=== PATIENT | male | born 1930 | race Caucasian/White ===

== ENCOUNTER → 2016-07-22 | Outpatient (CLI) | payer MEDICARE, BC ==
[~2016-07-22] MED LIST: ACETAM OR; ACETAMINOPHEN PO; AMBI12.52 PO; ATEN50TA2 PO; ATOR40TA PO; CALC500T36 PO; CIPR500S PO; CIPR500T89 PO; DIGO0.127 PO; DIGO0.25 PO; DUTA1CAP PO; FISH500C PO; FLOM5CAP OR; FURO20TA2 PO; GLIP5TAB8 PO; LIPI20TA PO; LISI-542 PO; MAGN250T5 PO; METF-699 PO; METF1000 PO; MULT1TAB8 PO; NITR100C37 PO; NITR4TASL SL; PERCOCET PO; PLAV75TA38 PO; PROS5TAB PO; SAW1CAP2 PO; SKEL-29 PO; TRAM37.53 PO; TRAMADOL OR; TRAMADOL PO; TRAZ50TA4 OR; TYLE167L PO; TYLE500T78 PO; TYLE650T25 PO; ULTR37.52 PO; VITA10002 PO; VITA50003 PO; XARE20TA PO; calcium + D OR; coumadin OR; fish oil OR; glipizide OR; nitroglycerine SL; prilosec OR
--- NOTE | 2016-07-25 06:22 | SLEEPCENT ---
DATE OF PROCEDURE: 07/22/2016 ORDERED BY: Sharri Li NP Nocturnal polysomnography was performed for evaluation of sleep apnea syndrome symptoms in this patient with a history of excessive somnolence, nonrestorative sleep, comorbidities of ischemic heart disease, atrial fibrillation and type 2 diabetes. 8 hours and 13 minutes of data were reviewed. There were 276 minutes of sleep identified. Sleep latency was prolonged at 94 minutes. Rapid eye movement (REM) was prolonged at 142 minutes. Sleep architecture showed severe fragmentation with 1 REM period. Sleep efficiency was low at 56%. The patient's electrocardiogram (EKG) showed atrial fibrillation with a ventricular response on average of 66 beats per minute. Electroencephalogram (EEG) showed normal waveforms for awake and sleep. There were 210 respiratory events identified of 10 seconds in duration or greater for an apnea hypopnea index of 45.6. The events were primarily obstructive, not exclusive to sleep stage, more frequent but not exclusive the supine posture. Arousals from respiratory events occurred 21.5 times per hour and oxygen desaturations were seen into the low 80s. Remaining of measures of sleep physiology were reasonably normal with some limb activity, but arousals from limb events were few. IMPRESSION: Severe obstructive sleep apnea syndrome (G47.33). Apnea hypopnea index 45.6. RECOMMENDATION: The patient should be encouraged to return to the sleep disorder center for pressure therapy at the earliest convenience. In the interim, alcohol and sedative avoidance should be practiced and caution exercised during the operation of motor vehicles.
== END ==
LOC: M SLEEP 19:43
PROVIDERS: ATTEND Nurse Practitioner Adult Health
DX: G47.30 Sleep apnea, unspecified (principal)

== ENCOUNTER → 2016-08-06 | Outpatient (CLI) | payer MEDICARE, BC | LOC: M SLEEP 19:41 | PROVIDERS: ATTEND Nurse Practitioner Adult Health | DX: G47.33 Obstructive sleep apnea (adult) (pediatric) (principal) ==

== ENCOUNTER → 2016-08-27 | Outpatient (REF) | payer MEDICARE, BC ==
[2016-08-27 13:34] LABS: MEAN CORPUSCULAR HEMOGLOBIN 27.7 pg (27.0-33.0); MEAN CORPUSCULAR HGB CONC 31.7 g/dl (32.0-36.5); MEAN CORPUSCULAR VOLUME 87.7 fl (80.0-96.0); RED CELL DISTRIBUTION WIDTH 15.4 % (11.5-14.5); WHITE BLOOD COUNT 6.8 K/mm3 (4.0-10.0)
[2016-08-27 13:38] LABS: ALBUMIN 3.6 GM/DL (3.2-5.2); ALBUMIN/GLOBULIN RATIO 1.09 (1.00-1.93); ALKALINE PHOSPHATASE 83 U/L (45-117); ALT/SGPT 27 U/L (12-78); ANION GAP 6 MEQ/L (8-16); AST/SGOT 17 U/L (15-37); BILIRUBIN,TOTAL 0.8 MG/DL (0.2-1.0); BLOOD UREA NITROGEN 20 MG/DL (7-18); CALCIUM LEVEL 9.1 MG/DL (8.8-10.2); CARBON DIOXIDE LEVEL 33 MEQ/L (21-32); CHLORIDE LEVEL 99 MEQ/L (98-107); CREATININE FOR GFR 0.98 MG/DL (0.70-1.30); GLOMERULAR FILTRATION RATE > 60.0 (>35); GLUCOSE, FASTING 191 MG/DL (83-110); MAGNESIUM LEVEL 1.9 MG/DL (1.8-2.4); SODIUM LEVEL 138 MEQ/L (136-145); TOTAL PROTEIN 6.9 GM/DL (6.4-8.2)
== END ==
LOC: M SFHCPLAZ 11:30
PROVIDERS: ATTEND Internal Medicine
DX: N39.0 Urinary tract infection, site not specified (principal); Z51.81 Encounter for therapeutic drug level monitoring; Z79.01 Long term (current) use of anticoagulants; E11.59 Type 2 diabetes mellitus with other circulatory complications; I10 Essential (primary) hypertension
CPT/HCPCS: 80053; 82043; 83036; 83735; 85027; 87086; G0463

== ENCOUNTER 2016-10-28 11:30 | Inpatient (IN) | payer MEDICARE, BC ==
[~2016-10-28] VITALS: Ht 188 cm; Wt 78.9 kg
[2016-10-28] MEDS ORDERED: OMEP10CASR PO (11:58)
[2016-10-28] MEDS ORDERED: MACR100C3 PO (11:58)
[2016-10-28] MEDS ORDERED: TOPR25TA PO (11:58)
[2016-10-28 12:24] LABS: BASO % 0.4 % (0.0-1.0); EOS # 0.2 K/mm3 (0.0-0.50); EOS % 2.7 % (0.0-3.0); LARGE UNSTAINED CELL # 0.1 K/mm3 (0.0-0.4); LARGE UNSTAINED CELL % 1.3 % (0.0-4.0); LYMPH # 1.1 K/mm3 (1.5-4.5); LYMPH % 14.8 % (24.0-44.0); MEAN CORPUSCULAR HEMOGLOBIN 27.9 pg (27.0-33.0); MEAN CORPUSCULAR HGB CONC 31.4 g/dl (32.0-36.5); MEAN CORPUSCULAR VOLUME 88.9 fl (80.0-96.0); MONO # 0.3 K/mm3 (0.0-0.8); NEUTROPHILS # 5.1 K/mm3 (1.8-7.7); NEUTROPHILS % 75.7 % (36.0-66.0); PLATELET COUNT, AUTOMATED 223 k/mm3 (150-450); WHITE BLOOD COUNT 6.8 K/mm3 (4.0-10.0)
--- NOTE | 2016-10-28 12:42 | REP ---
PORTABLE CHEST: AP portable view of the chest is performed. COMPARISON: 01/18/2016 There are diffuse bilateral infiltrates, right greater than left. There is a right pleural effusion. Heart size is not well evaluated but the heart size appears prominent. IMPRESSION: Diffuse bilateral infiltrates right grater than left. Right pleural effusion. Signed by Gilberto Ayala MD 10/30/2016 06:56 P
[2016-10-28 12:50] LABS: ALBUMIN 3.7 GM/DL (3.2-5.2); ALBUMIN/GLOBULIN RATIO 0.97 (1.00-1.93); ALKALINE PHOSPHATASE 84 U/L (45-117); ALT/SGPT 41 U/L (12-78); ANION GAP 7 MEQ/L (8-16); AST/SGOT 27 U/L (15-37); BILIRUBIN,DIRECT 0.3 MG/DL (0.0-0.2); BILIRUBIN,TOTAL 0.9 MG/DL (0.2-1.0); BLOOD UREA NITROGEN 33 MG/DL (7-18); CARBON DIOXIDE LEVEL 29 MEQ/L (21-32); CHLORIDE LEVEL 101 MEQ/L (98-107); CREATININE FOR GFR 1.19 MG/DL (0.70-1.30); GLOMERULAR FILTRATION RATE > 60.0 (>35); GLUCOSE, FASTING 193 MG/DL (83-110); POTASSIUM SERUM 4.7 MEQ/L (3.5-5.1); SODIUM LEVEL 137 MEQ/L (136-145); TOTAL PROTEIN 7.5 GM/DL (6.4-8.2)
[2016-10-28] MEDS ORDERED: FUROSEMIDE 40 MG/4 ML VIAL (J1940) IV ONE (13:15)
[2016-10-28 13:32] LABS: INR 2.05
[2016-10-28] MEDS ORDERED: NITROGLYCERIN 2% OINT 1 GM *U/D* PKT TOP ONE (14:15)
[2016-10-28] MEDS ORDERED: OYST1TAB5 PO (14:44)
[2016-10-28] MEDS ORDERED: DEXTROSE 50% 50 ML SYRINGE IV PRN (17:15)
[2016-10-28] MEDS ORDERED: GLUCOSE 4 GM CHEW TABLET PO PRN (17:15)
[2016-10-28] MEDS ORDERED: GLUCAGON FOR INJ 1 MG VIAL (J1610) SC PRN (17:15)
[2016-10-28 17:20] VITALS: BP 126/84
[2016-10-28] MEDS: HumaLOG INSULIN (NovoLOG) PER UNIT SC SCH ×2 (17:30→21:00)
--- NOTE | 2016-10-28 19:20 | HPEPDOC ---
General Date of Admission October 28, 2016 at 15:07 Primary Care Physician: Ezequiel Leo Other Providers Dr. Lou, furniture mover helper Attending Physician: ROLDAN NAVA Chief Complaint The patient is a 86-year-old male admitted with a reason for visit of Acute On Chronic Systolic Heart Failure. Source: Patient, Family Exam Limitations: Hard of hearing History of Present Illness Patient is an 86-year-old male presenting today with 3-4 days of shortness of breath and fatigue. Patient reports being able to walk over 10 feet before becoming short of breath. He and fact even mowed his lawn on Thursday, although was a riding lawnmower. Past 3-4 days patient is unable to walk 10 feet without becoming short of breath and having to stop. Today the shortness of breath became worse and patient is short of breath at rest. Normally is not on any oxygen supplementation at home. Patient admits to having chest pain with eructation and is relieved with taking a deep breath or burping. Patient denies pleuritic chest pain. Patient also admits to having increased swelling in lower extremities. Usually swelling is more confined to feet but has increased over the last several days. Patient also admits to falling on his face in the early childhood worker of 10/27/2016. This happened when he got up to feed his cat. Patient reports bending over to feel cat bowl with food and fell on his face. Patient remembers the whole event and does not remember passing out. Patient was able to stand up after the events. Patient reports having a small bruise over his left eye and no other injury from this fall. Patient does live next door to her daughter and her however nobody was there to witness this at that time. Patient does have a history of previous PA, atrial fibrillation, systolic heart failure, and type [address] Lou for cardiology done in [place]. Last appointment was in July 2016. Patient reports last PA was roughly a year ago and had 2 stents placed at that time. Home Medications Scheduled (Oyster Shell Calcium/D3 500-400 mg-Unit) 1 Tab Tab, 1 TAB PO DAILY, (Reported) Acetaminophen (Tylenol Extra Strength) 500 Mg Tab, 500 MG PO QHS, (Reported) Atorvastatin Calcium (Atorvastatin Calcium) 40 Mg Tab, 40 MG PO DAILY, (Reported ) Clopidogrel Bisulfate (Plavix) 75 Mg Tab, 75 MG PO QPM, (Reported) Cyanocobalamin (Vitamin B-12) 1,000 Mcg Tab, 5,000 MCG PO DAILY, (Reported) Digoxin (Digox) 0.125 Mg Tab, 0.125 MG PO DAILY, (Reported) Dutasteride (Dutasteride) 0.5 Mg Cap, 0.5 MG PO QPM, (Reported) Ergocalciferol (Vitamin D) 50,000 Unit Cap, 1.25 MG PO Q2WK, (Reported) EVERY OTHER THURSDAY Furosemide (Furosemide) 20 Mg Tab, 60 MG PO DAILY, (Reported) Glipizide (Glipizide) 5 Mg Tab, 5 MG PO QHS, (Reported) Lisinopril (Lisinopril) 5 Mg Tab, 10 MG PO DAILY, (Reported) Magnesium Oxide (Magnesium) 250 Mg Tab, 250 MG PO DAILY, (Reported) Metformin Hydrochloride (Metformin HCl ER) 500 Mg Tab, 1,000 MG PO BID, ( Reported) Metoprolol Succinate (Toprol Xl) 25 Mg Tab, 25 MG PO QPM, (Reported) Nitrofurantoin Monohydrate Mac (Macrobid) 100 Mg Cap, 100 MG PO QPM, (Reported) Omeprazole (PriLOSEC) 10 Mg Capcr, 20 MG PO QPM, (Reported) Rivaroxaban (Xarelto) 20 Mg Tab, 20 MG PO DAILY, (Reported) Tamsulosin Hydrochloride (Flomax) 0.4 Mg Cap, 0.4 MG OR DAILY, (Reported) Tramadol/Apap (Ultracet 37.5-325 mg) 1 Tab Tab, 1 TAB PO DAILY, (Reported) Zolpidem Tartrate (Ambien Cr) 12.5 Mg Tab, 12.5 MG PO QHS, (Reported) Scheduled PRN Nitroglycerin (Nitrostat) 0.4 Mg Subl, 0.4 MG SL ASDIRECTED PRN for CHEST PAIN, (Reported) Allergies Coded Allergies: Sulfa Drugs (Unverified Allergy, Unknown, 08/30/12) Sulfa Drugs Cross Reactors (Unverified Allergy, Unknown, 08/30/12) Past Medical History Medical History 1. history of myocardial infarction 2. History of congestive heart failure 3. Diabetes mellitus type 2 4. 2 cardiac stent placement 2015 5. History of atrial fibrillation 6. History of chronic back and neck pain 7. History of chronic bladder infection 8. History of bladder stones 9. BPH Surgical History 1. Bilateral knee replacement 2. Removal of bladder stones 3. Cataracts bilaterally 4. Lumbar spine disc repair Social History * Smoker: former Smoker (smoked a pack a day for possibly 17 years), quit greater than 1 year (quit 47 years ago.) Alcohol: rarely Drugs: denies Recent Travel/Sick Contacts: Denies: Recent travel, Recent sick contacts Pets in the home: Cat(s) Patient lives at home in house next to her daughter and her . Patient has a cat in the home. Patient he is a former smoker. Denies illegal or illicit drugs. Does not drink any alcohol. Used to drink alcohol on occasion. Review of Symptoms Constitutional: Denies: Chills, Fever Eyes: Denies: Vision change ENT: Denies: Head Aches Skin: Reports: Other (bruise above the left eye.), Denies: Rash, Lesions Pulmonary: Reports: Dyspnea, Denies: Cough, Pleuritic Chest Pain Cardiovascular: Denies: Chest Pain, Palpitations Gastrointestinal: Reports: Diarrhea (had a loose stool last week.), Denies: Nausea, Vomiting, Abdominal Pain Genitourinary: Denies: Dysuria, Frequency Hematologic: Denies: Bleeding Excessively, Pet[place]chia Musculoskeletal: Denies: Neck Pain, Back Pain Neurological: Denies: Weakness, Numbness Psych: Reports: Mood Normal Physical Examination General Exam: Positive: Alert, Cooperative, No Acute Distress Eye Exam: Positive: PERRLA, Conjunctiva & lids normal, EOMI ENT Exam: Positive: Atraumatic, Mucous membr. moist/pink, Pharynx Normal, Tongue Midline, Nares Patent Neck Exam: Positive: Supple, Negative: JVD, thyromegaly Chest Exam: Positive: Diminished Heart Exam: Positive: Irregular Rhythm, Normal S1, Normal S2 Telemetry: Positive: Atrial fibrillation Abdomen Exam: Positive: Normal bowel sounds, Negative: Tenderness, Hepatospenomegaly, Mass Extremity Exam: Positive: Edema (bilateral lower extremity edema pitting to knees) Skin Exam: Positive: Other skin issue (patient does have a erythematous, follicular, moist and exudative. Extends from right groin to underneath right abdominal fold.) Neuro Exam: Positive: Normal Speech, Strength at 5/5 X4 ext, Normal Tone, Sensation Intact, Cranial Nerves 3-12 NL Psych Exam: Positive: Mental status NL, Oriented x 3 Vital Signs Vital Signs Date Time Temp Pulse Resp B/P (MAP) Pulse Ox O2 Delivery O2 Flow Rate FiO2 10/28/16 17:20 98.2 105 16 126/84 (98) 96 Nasal Cannula 2.0 Height (in): 74 Weight (kg): 88.1 BMI (kg): 24.9 Laboratory Data Labs 24H Laboratory Tests 2 10/28/16 11:55: Prothrombin Time 23.2H, Prothromb Time International Ratio 2.05, Activated Partial Thromboplast Time 40.4H, Digoxin Level 1.6 10/28/16 12:02: White Blood Count 6.8, Red Blood Count 4.12L, Hemoglobin 11.5L, Hematocrit 36.6L , Mean Corpuscular Volume 88.9, Mean Corpuscular Hemoglobin 27.9, Mean Corpuscular Hemoglobin Concent 31.4L, Red Cell Distribution Width 15.0H, Platelet Count 223, Neutrophils (%) (Auto) 75.7H, Lymphocytes (%) (Auto) 14.8L, Monocytes (%) (Auto) 5.0, Eosinophils (%) (Auto) 2.7, Basophils (%) (Auto) 0.4, Neutrophils # (Auto) 5.1, Lymphocytes # (Auto) 1.1L, Monocytes # (Auto) 0.3, Eosinophils # (Auto) 0.2, Basophils # (Auto) 0.0, Large Unclassified Cells % 1.3 , Large Unclassified Cells # 0.1, Anion Gap 7L, Glomerular Filtration Rate > 60.0, Calcium Level 9.0, Aspartate Amino Transf (AST/SGOT) 27, Alanine Aminotransferase (ALT/SGPT) 41, Alkaline Phosphatase 84, Total Bilirubin 0.9, Direct Bilirubin 0.3H, Total Creatine Kinase 222, Creatine Kinase MB 1.9, Creatine Kinase MB Relative Index 0.85, Troponin I 0.03, B-Type Natriuretic Peptide 923H, Total Protein 7.5, Albumin 3.7, Albumin/Globulin Ratio 0.97L, Thyroid Stimulating Hormone (TSH) 3.530 10/28/16 17:44: Bedside Glucose (Misc Panel) 163H 10/28/16 17:57: CBC/BMP Laboratory Tests 10/28/16 12:02 Red Blood Count 4.12 L, Mean Corpuscular Volume 88.9, Mean Corpuscular Hemoglobin 27.9, Mean Corpuscular Hemoglobin Concent 31.4 L, Red Cell Distribution Width 15.0 H, Neutrophils (%) (Auto) 75.7 H, Lymphocytes (%) (Auto ) 14.8 L, Monocytes (%) (Auto) 5.0, Eosinophils (%) (Auto) 2.7, Basophils (%) ( Auto) 0.4, Neutrophils # (Auto) 5.1, Lymphocytes # (Auto) 1.1 L, Monocytes # ( Auto) 0.3, Eosinophils # (Auto) 0.2, Basophils # (Auto) 0.0 Microbiology Microbiology 10/28/16 Blood Culture, Received Pending 10/28/16 Blood Culture, Received Pending RAD Interpretation STUDY: CXR (diffuse infiltrates and right pleural effusion) Problems (1) Acute on chronic systolic (congestive) heart failure Problem Text: Patient has a documented echo from August 2015 showing an ejection fracture of 40%. Patient's furniture mover helper is Dr. Lou in [place]. Patient has signs of worsening heart failure that include worsening dyspnea, dyspnea at rest, lower extremity edema, and fatigue. Patient's BMP today is 923. Chest x-ray showed diffuse infiltrates with a right pleural effusion. EKG in the ER revealed atrial fibrillation as per patient's history. Patient was on 2 L oxygen the ER but still complaining of dyspnea. Patient is on oral Lasix at home 60 mg a day. Changing patient's Lasix to IV 60 mg a day. Patient's last recorded echo was from August 2015. Since patient's status has changed today ordering an echo while patient is in the hospital. Moderate patient's nose and weight daily. Patient will be on a monitor. Continue patient' s home LARISA inhibitor and beta ran. We'll also continue patient's digoxin. Patient is on antiplatelet therapy with Plavix 75 mg daily. Continue this while in the hospital. Continue patient's LARISA inhibitor, lisinopril 10 mg daily. Also continuing patient's statin Lipitor 40 mg daily. Patient's initial cardiac markers were negative in the ER. Repeat cardiac markers at 6 PM and midnight tonight. Also repeating patient's EKG at 6 PM this evening. This is to rule out's cardiac ischemia changes. (2) Chronic atrial fibrillation Problem Text: Patient has history of chronic atrial fibrillation which she seen cardiologists in the past for. Patient is on regular control as well as anticoagulation. He takes metoprolol 25 mg daily and Xarelto 20 mg daily at home. We'll continue this while patient is in the hospital. Patient is on a senior producer. (3) Diabetes type 2, controlled Problem Text: Holding patient's home medications of metformin and glipizide. Started patient on sliding scale insulin while in the hospital. Monitor patient' s glucose and signs of hypoglycemia. (4) BPH (benign prostatic hyperplasia) Problem Text: Patient reports having benign prostatic hypertrophy and takes Avodart and Flomax daily. Patient reports this helps. We'll continue this while patient is in the hospital. (5) Bladder infection, chronic Problem Text: Patient reports having a chronic bladder infection and takes Macrobid daily for this. Patient is taking this for several months her primary care physician. We'll continue this while in the hospital. (6) Tinea cruris Problem Text: Patient was aware of this fungal infection from his right groin to underneath his right abdominal fold. Patient denies any symptoms of pruritus , pain. This was found incidentally on physical exam. Patient did have this in the past and used an antifungal. Prescribing patient nystatin cream to be applied twice a day while in the hospital. (7) YOEL (obstructive sleep apnea) Problem Text: Patient has history of obstructive sleep apnea and wears CPAP at home. (8) Chronic back pain Problem Text: Patient has chronic back pain. Continuing patient's home medication of Ultracet 37.5-325 mg 1 tablet daily, acetaminophen 1 tablet daily 500 mg. Plan / VTE VTE Prophylaxis Ordered?: Yes (patient is on Xarelto 20 mg daily for atrial fibrillation.) GME ATTESTATION GME ATTESTATION My preceptor for this patient encounter was Dr. Baltazar and she was physically present in the building during the encounter and was fully available. As needed , all aspects of the patient interview, examination, medical decision making process, and medical care plan development were reviewed and approved by the preceptor. Preceptor is aware and concurs with the plan as stated in the body of this note and will attest to such by his/her co-signature. LAURA HEREDIA DO October 28, 2016 18:18
[2016-10-28 19:53] VITALS: BP 112/73
--- NOTE | 2016-10-28 20:42 | ECGEPIP ---
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
[2016-10-28] MEDS: NYSTATIN CREAM 15 GM TOP SCH (21:10)
[2016-10-28] MEDS: METOPROLOL SUCC *XL* 25MG TAB (TopROL *XL*) PO SCH (21:11)
[2016-10-28] MEDS: DUTASTERIDE 0.5 MG CAP (AVODART) PO SCH (21:11)
[2016-10-28] MEDS: RIVAROXABAN 20 MG TAB (XARELTO) PO SCH (21:11)
[2016-10-28] MEDS: NITROFURANTOIN (MACROBID) 100 MG CAP PO SCH (21:11)
[2016-10-28] MEDS: CLOPIDOGREL 75 MG TAB PO SCH (21:11)
[2016-10-28] MEDS: zolPIDEM CR 6.25MG TABLET (AMBIEN CR) PO SCH (21:11)
[2016-10-28] MEDS: FUROSEMIDE 100 MG/10 ML VIAL (J1940) IV SCH (21:12)
--- NOTE | 2016-10-28 22:43 | ECGEPIP ---
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
[2016-10-28 23:43] VITALS: BP 121/75
[2016-10-29 04:42] VITALS: BP 108/62
[2016-10-29 05:36] LABS: BASO % 0.4 % (0.0-1.0); EOS # 0.2 K/mm3 (0.0-0.50); EOS % 3.5 % (0.0-3.0); LARGE UNSTAINED CELL # 0.1 K/mm3 (0.0-0.4); LARGE UNSTAINED CELL % 1.2 % (0.0-4.0); LYMPH # 0.9 K/mm3 (1.5-4.5); LYMPH % 16.7 % (24.0-44.0); MEAN CORPUSCULAR HEMOGLOBIN 28.2 pg (27.0-33.0); MEAN CORPUSCULAR HGB CONC 32.1 g/dl (32.0-36.5); MONO # 0.3 K/mm3 (0.0-0.8); MONO % 5.3 % (0.0-5.0); NEUTROPHILS # 3.9 K/mm3 (1.8-7.7); NEUTROPHILS % 72.9 % (36.0-66.0); PLATELET COUNT, AUTOMATED 187 k/mm3 (150-450); WHITE BLOOD COUNT 5.3 K/mm3 (4.0-10.0)
[2016-10-29 05:53] LABS: ANION GAP 7 MEQ/L (8-16); BLOOD UREA NITROGEN 34 MG/DL (7-18); CALCIUM LEVEL 8.7 MG/DL (8.8-10.2); CARBON DIOXIDE LEVEL 32 MEQ/L (21-32); CHLORIDE LEVEL 100 MEQ/L (98-107); CREATININE FOR GFR 1.05 MG/DL (0.70-1.30); GLOMERULAR FILTRATION RATE > 60.0 (>35); GLUCOSE, FASTING 143 MG/DL (83-110); MAGNESIUM LEVEL 1.7 MG/DL (1.8-2.4); POTASSIUM SERUM 4.3 MEQ/L (3.5-5.1); SODIUM LEVEL 139 MEQ/L (136-145)
[2016-10-29 08:00] VITALS: BP 104/64
[2016-10-29] MEDS ORDERED: MAG SULF 1GM/100ML (MAG RUN) 1 GM in APPROPRIATE DILUENT 1 EA IV ONE (08:00)
[2016-10-29] MEDS ORDERED: LISINOPRIL 10 MG TAB PO SCH (09:00)
[2016-10-29] MEDS ORDERED: FUROSEMIDE 100 MG/10 ML VIAL (J1940) IV SCH (09:00)
[2016-10-29] MEDS: HumaLOG INSULIN (NovoLOG) PER UNIT SC SCH ×4 (09:08→20:12)
[2016-10-29] MEDS: FUROSEMIDE 100 MG/10 ML VIAL (J1940) IV SCH ×2 (09:10→20:13)
[2016-10-29] MEDS: DIGOXIN 0.125 MG TAB PO SCH (09:10)
[2016-10-29] MEDS: ATORVASTATIN 20 MG TAB PO SCH (09:10)
[2016-10-29] MEDS: LISINOPRIL 5 MG TAB PO SCH (09:11)
[2016-10-29] MEDS: NYSTATIN CREAM 15 GM TOP SCH ×2 (09:11→20:14)
[2016-10-29] MEDS: TAMSULOSIN 0.4 MG CAP PO SCH (09:11)
[2016-10-29] MEDS: ULTRACET TAB PO SCH (09:14)
--- NOTE | 2016-10-29 09:23 | REP ---
CT of the chest without IV contrast: Comparison is the portable plain film study dated 10/28/2016. There is a large right pleural effusion. There is a small left pleural effusion. There is an infiltrate versus mass posteriorly in the right middle lobe. There is no mediastinal or axillary adenopathy. The study is insensitive for hilar adenopathy. The thoracic aorta is unremarkable. Cardiac size is normal. The visualized upper abdominal contents are unremarkable. Signed by Gilberto Bond MD 10/29/2016 09:15 A
[2016-10-29 11:53] VITALS: BP 115/64
--- NOTE | 2016-10-29 15:27 | IPNPDOC ---
Text Note Date of Service The patient was seen on 10/29/16. NOTE Subjective: Pt feeling better. SOB improving. No CP. Objective: Vitals: (see below) General: No acute distress, laying comfortably in bed. HEENT: Moist mucous membranes. Neck: No JVD or lymphadenopathy Cardiac: RRR, No murmurs Pulm: Coarse crackles and diminished breath sounds R>L. No wheezing, rhonchi Abd: NT/ND + BS Ext: 2+ pitting edema BLE. No cyanosis Labs (see below) Images: CT of the chest without IV contrast: Comparison is the portable plain film study dated 10/28/2016. There is a large right pleural effusion. There is a small left pleural effusion. There is an infiltrate versus mass posteriorly in the right middle lobe. There is no mediastinal or axillary adenopathy. The study is insensitive for hilar adenopathy. The thoracic aorta is unremarkable. Cardiac size is normal. The visualized upper abdominal contents are unremarkable. Assessment/Plan 1.Acute Decompensated systolic heart failure- last EF 40% in August 2015. On IV Lasix diuresing well. Continued on LARISA inhibitor and beta ran, which patient takes at home. Repeat echocardiogram. EKG with no acute ST changes. Cardiac enzymes negative. 2. Large right pleural effusion- we'll continue with aggressive diuresis, and repeat CT chest with contrast. May need thoracentesis if persistent. History of tobacco abuse. 3. History of atrial fibrillation on Xarelto. Continue metoprolol. 4. History of CAD on Plavix, statin, and beta ran 5. YOEL on CPAP 6. BPH on Flomax 7. Chronic recurrent UTI- on nitrofurantoin DVT prophy: On Xarelto VS,Fishbone, I+O VS, Fishbone, I+O Laboratory Tests 10/29/16 05:01 Red Blood Count 3.73 L, Mean Corpuscular Volume 88.0, Mean Corpuscular Hemoglobin 28.2, Mean Corpuscular Hemoglobin Concent 32.1, Red Cell Distribution Width 15.0 H, Neutrophils (%) (Auto) 72.9 H, Lymphocytes (%) (Auto ) 16.7 L, Monocytes (%) (Auto) 5.3 H, Eosinophils (%) (Auto) 3.5 H, Basophils (% ) (Auto) 0.4, Neutrophils # (Auto) 3.9, Lymphocytes # (Auto) 0.9 L, Monocytes # (Auto) 0.3, Eosinophils # (Auto) 0.2, Basophils # (Auto) 0.0, Calcium Level 8.7 L Vital Signs Date Time Temp Pulse Resp B/P (MAP) Pulse Ox O2 Delivery O2 Flow Rate FiO2 10/29/16 13:00 Nasal Cannula 2.0 10/29/16 11:53 97.5 63 20 115/64 (04) 98 I&O- Last 24 Hours up to 6 AM 10/29/16 06:00 Intake Total 480 ml Output Total 2100 ml Balance -1620 ml STEPHAN STAPLES MD October 29, 2016 15:27
[2016-10-29 16:00] VITALS: BP 104/64
[2016-10-29] MEDS: RIVAROXABAN 20 MG TAB (XARELTO) PO SCH (17:54)
[2016-10-29 20:00] VITALS: BP 117/64
[2016-10-29] MEDS: zolPIDEM CR 6.25MG TABLET (AMBIEN CR) PO SCH (20:13)
[2016-10-29] MEDS: CLOPIDOGREL 75 MG TAB PO SCH (20:14)
[2016-10-29] MEDS: METOPROLOL SUCC *XL* 25MG TAB (TopROL *XL*) PO SCH (20:14)
[2016-10-29] MEDS: NITROFURANTOIN (MACROBID) 100 MG CAP PO SCH (20:14)
[2016-10-29] MEDS: DUTASTERIDE 0.5 MG CAP (AVODART) PO SCH (20:14)
[2016-10-29] MEDS ORDERED: SLF 3 ML SYR IV PRN (23:00)
[2016-10-30] VITALS (7 sets, daily range): BP systolic 86–110; BP diastolic 48–74
[2016-10-30] MEDS: SLF 3 ML SYR IV SCH ×3 (03:40→20:48)
[2016-10-30 05:43] LABS: BASO % 0.5 % (0.0-1.0); EOS # 0.2 K/mm3 (0.0-0.50); LARGE UNSTAINED CELL # 0.1 K/mm3 (0.0-0.4); LARGE UNSTAINED CELL % 1.8 % (0.0-4.0); LYMPH # 0.9 K/mm3 (1.5-4.5); LYMPH % 16.4 % (24.0-44.0); MEAN CORPUSCULAR HEMOGLOBIN 28.6 pg (27.0-33.0); MEAN CORPUSCULAR HGB CONC 32.4 g/dl (32.0-36.5); MEAN CORPUSCULAR VOLUME 88.2 fl (80.0-96.0); MONO # 0.4 K/mm3 (0.0-0.8); MONO % 7.2 % (0.0-5.0); NEUTROPHILS # 3.8 K/mm3 (1.8-7.7); NEUTROPHILS % 71.1 % (36.0-66.0); PLATELET COUNT, AUTOMATED 201 k/mm3 (150-450); WHITE BLOOD COUNT 5.3 K/mm3 (4.0-10.0)
[2016-10-30 05:55] LABS: ANION GAP 5 MEQ/L (8-16); BLOOD UREA NITROGEN 28 MG/DL (7-18); CALCIUM LEVEL 8.6 MG/DL (8.8-10.2); CARBON DIOXIDE LEVEL 35 MEQ/L (21-32); CHLORIDE LEVEL 99 MEQ/L (98-107); CREATININE FOR GFR 0.94 MG/DL (0.70-1.30); GLOMERULAR FILTRATION RATE > 60.0 (>35); GLUCOSE, FASTING 135 MG/DL (83-110); MAGNESIUM LEVEL 1.6 MG/DL (1.8-2.4); POTASSIUM SERUM 3.8 MEQ/L (3.5-5.1); SODIUM LEVEL 139 MEQ/L (136-145)
--- NOTE | 2016-10-30 07:33 | ECHO ---
DATE OF PROCEDURE: 10/29/2016 REFERRING PHYSICIAN: Dr. Matt Ibarra INDICATION: Heart failure unspecified. HEIGHT: 183 cm. WEIGHT: 88 kg. 2D MEASUREMENTS: Aortic root - 3.6 cm Left atrium - 4.1 cm Ventricular septum - 1.07 cm Posterior wall - 1.10 cm Left ventricle diastole - 5.4 cm Inferior vena cava - 2.2 cm DOPPLER MEASUREMENTS: Moderate aortic stenosis. Mild aortic regurgitation. Aortic stenosis dimension index - 0.26 Peak aortic valve gradient - 23 mmHg Mean aortic valve gradient - 12 mmHg Peak aortic valve velocity - 240 cm/s Aortic valve VTI - 45.1 cm LVOT velocity - 55.6 cm/s LVOT VTI - 11.9 cm Severe mitral regurgitation. No mitral stenosis. Very mild tricuspid regurgitation. Trace pulmonic regurgitation. Pulmonary venous systolic pressure 43 mmHg by pulmonary acceleration time method. DESCRIPTION: The rhythm appeared to be atrial fibrillation with controlled ventricular response. Image quality was fair. No pericardial effusion. This is a 2D, M-mode, color flow Doppler and pulsed wave Doppler examination including mitral annular tissue Doppler. CONCLUSIONS: 1. Multiple regional wall motion abnormalities of the left ventricle. Akinesis of the left ventricle apex. Akinesis of the anterior, anteroseptal and inferoseptal segments at the mid left ventricle level. Hypokinesis of the mid inferior wall segment. Hypokinesis of the basal, anteroseptal and basal inferoseptal LV segments. Normal wall motion and wall thickening involving the basal anterior, basal inferior, and the basilar mid inferolateral and anterolateral LV segments. Akinesis of the apical cap segment. No LV thrombus. Severe reduction overall LV systolic function. LVEF 20% by visual estimate. Unable to assess LV diastolic function in the setting of atrial fibrillation and severe mitral regurgitation. 2. Severe mitral annular calcification. Severe mitral regurgitation. No mitral stenosis. 3. Degenerative, mild calcific aortic valve disease with severe focal thickening and focal cuspid deposits of a three-cuspid aortic valve. Moderate reduction in mobility of the aortic cusps. Moderate aortic stenosis as judged by the dimensions index. Mild aortic regurgitation. 4. Moderate left atrial dilatation by visual assessment. 5. Suggestive of moderate elevation of pulmonary artery systolic pressure. Normal right ventricle size and systolic function. Moderate right atrial dilatation by visual assessment. 6. Inferior vena cava plethora. Suggestive of elevated central venous pressure of at least 20 mmHg. 7. The appearance of bilateral pleural effusion.
[2016-10-30] MEDS: FUROSEMIDE 100 MG/10 ML VIAL (J1940) IV SCH (08:23)
[2016-10-30] MEDS: NYSTATIN CREAM 15 GM TOP SCH ×2 (08:24→20:48)
[2016-10-30] MEDS: ATORVASTATIN 20 MG TAB PO SCH (08:25)
[2016-10-30] MEDS: DIGOXIN 0.125 MG TAB PO SCH (08:25)
[2016-10-30] MEDS: LISINOPRIL 5 MG TAB PO SCH (08:26)
[2016-10-30] MEDS: HumaLOG INSULIN (NovoLOG) PER UNIT SC SCH ×4 (08:26→20:47)
[2016-10-30] MEDS: TAMSULOSIN 0.4 MG CAP PO SCH (08:27)
[2016-10-30] MEDS: ULTRACET TAB PO SCH (08:27)
[2016-10-30] MEDS ORDERED: ISOVUE-370 76% 100ML VIAL (Q9967) As Ordered ONE (09:08)
[2016-10-30] MEDS: MAG SULF 1GM/100ML (MAG RUN) 1 GM in APPROPRIATE DILUENT 1 EA IV SCH ×2 (09:49→11:04)
[2016-10-30] MEDS: MAGNESIUM OXIDE 400 MG TAB (MAG-OX) PO SCH ×2 (09:50→20:47)
--- NOTE | 2016-10-30 10:18 | REP ---
REASON: Followup pleural effusion. COMPARISON: 10/29/2016 Contrast utilized: 100 mL of Isovue 370 There is a large right pleural effusion status quo. There is a small left pleural effusion status quo. There is no pericardial effusion. Patchy and asymmetric opacities again seen in the right lower lobe status quo. There is fluid in the right minor fissure, status quo. The imaged upper abdomen and imaged osseous structures are unchanged. Evaluation of the lung moyer show them to be stable. The right lower lobe opacity is likely secondary to compressive atelectatic changes due to the effusion. No new masses are present. IMPRESSION: Essentially unchanged CT examination of the chest with findings as described above. Signed by King Coles DO 10/30/2016 10:42 A
--- NOTE | 2016-10-30 14:07 | IPNPDOC ---
Text Note Date of Service The patient was seen on 10/30/16. NOTE Subjective: Pt feeling better. SOB improving. No CP. Objective: Vitals: (see below) General: No acute distress, laying comfortably in bed. HEENT: Moist mucous membranes. Neck: No JVD or lymphadenopathy Cardiac: RRR, No murmurs Pulm: Coarse crackles and diminished breath sounds R>L. No wheezing, rhonchi Abd: NT/ND + BS Ext: 2+ pitting edema BLE. No cyanosis Labs (see below) Images: CT of the chest without IV contrast: is the portable plain film study dated 10/28/2016. There is a large right pleural effusion. There is a small left pleural effusion. There is an infiltrate versus mass posteriorly in the right middle lobe. There is no mediastinal or axillary adenopathy. The study is insensitive for hilar adenopathy. The thoracic aorta is unremarkable. Cardiac size is normal. The visualized upper abdominal contents are unremarkable. CT Chest with contrast 10/30/16 There is a large right pleural effusion status quo. There is a small left pleural effusion status quo. There is no pericardial effusion. Patchy and asymmetric opacities again seen in the right lower lobe status quo. There is fluid in the right minor fissure, status quo. The imaged upper abdomen and imaged osseous structures are unchanged. Evaluation of the lung moyer show them to be stable. The right lower lobe opacity is likely secondary to compressive atelectatic changes due to the effusion. No new masses are present. IMPRESSION: Essentially unchanged CT examination of the chest with findings as described above. Echocardiogram 10/30/16 CONCLUSIONS: 1. Multiple regional wall motion abnormalities of the left ventricle. Akinesis of the left ventricle apex. Akinesis of the anterior, anteroseptal and inferoseptal segments at the mid left ventricle level. Hypokinesis of the mid inferior wall segment. Hypokinesis of the basal, anteroseptal and basal inferoseptal LV segments. Normal wall motion and wall thickening involving the basal anterior, basal inferior, and the basilar mid inferolateral and anterolateral LV segments. Akinesis of the apical cap segment. No LV thrombus. Severe reduction overall LV systolic function. LVEF 20% by visual estimate. Unable to assess LV diastolic function in the setting of atrial fibrillation and severe mitral regurgitation. 2. Severe mitral annular calcification. Severe mitral regurgitation. No mitral stenosis. 3. Degenerative, mild calcific aortic valve disease with severe focal thickening and focal cuspid deposits of a three-cuspid aortic valve. Moderate reduction in mobility of the aortic cusps. Moderate aortic stenosis as judged by the dimensions index. Mild aortic regurgitation. 4. Moderate left atrial dilatation by visual assessment. 5. Suggestive of moderate elevation of pulmonary artery systolic pressure. Normal right ventricle size and systolic function. Moderate right atrial dilatation by visual assessment. 6. Inferior vena cava plethora. Suggestive of elevated central venous pressure of at least 20 mmHg. 7. The appearance of bilateral pleural effusion. Assessment/Plan 1.Acute Decompensated systolic heart failure- last EF 40% in August 2015--> now 20%. Severe MR noted. Dr. Lincoln consulted. On IV Lasix diuresing well. Continued on LARISA inhibitor and beta ran. Repeat echocardiogram (see above). EKG with no acute ST changes. Cardiac enzymes negative. 2. Large right pleural effusion- we'll continue with aggressive diuresis, New since 12/2015. Repeat CT chest with contrast. May need thoracentesis if persistent. History of tobacco abuse. Consolidation noted, started on Levaquin. 3. History of atrial fibrillation on Xarelto. Continue metoprolol. 4. History of CAD on Plavix, statin, and beta ran 5. YOEL on CPAP 6. BPH on Flomax 7. Chronic recurrent UTI- on nitrofurantoin DVT prophy: On Xarelto VS,Fishbone, I+O VS, Fishbone, I+O Laboratory Tests 10/30/16 05:13 Red Blood Count 3.84 L, Mean Corpuscular Volume 88.2, Mean Corpuscular Hemoglobin 28.6, Mean Corpuscular Hemoglobin Concent 32.4, Red Cell Distribution Width 15.0 H, Neutrophils (%) (Auto) 71.1 H, Lymphocytes (%) (Auto ) 16.4 L, Monocytes (%) (Auto) 7.2 H, Eosinophils (%) (Auto) 3.0, Basophils (%) (Auto) 0.5, Neutrophils # (Auto) 3.8, Lymphocytes # (Auto) 0.9 L, Monocytes # ( Auto) 0.4, Eosinophils # (Auto) 0.2, Basophils # (Auto) 0.0, Calcium Level 8.6 L Vital Signs Date Time Temp Pulse Resp B/P (MAP) Pulse Ox O2 Delivery O2 Flow Rate FiO2 10/30/16 11:31 97.0 95 18 98/48 (65) 95 Nasal Cannula 2.0 I&O- Last 24 Hours up to 6 AM 10/30/16 05:59 Intake Total 1480 ml Output Total 2750 ml Balance -1270 ml STEPHAN STAPLES MD Oct 30, 2016 14:07
[2016-10-30] MEDS ORDERED: LevoFLOXacin IV 500 MG in APPROPRIATE DILUENT 1 EA IV SCH (15:00)
[2016-10-30] MEDS: FUROSEMIDE 40 MG/4 ML VIAL (J1940) IV SCH (17:00)
[2016-10-30] MEDS: RIVAROXABAN 20 MG TAB (XARELTO) PO SCH (18:05)
[2016-10-30] MEDS: zolPIDEM CR 6.25MG TABLET (AMBIEN CR) PO SCH (20:46)
[2016-10-30] MEDS: CLOPIDOGREL 75 MG TAB PO SCH (20:46)
[2016-10-30] MEDS: DUTASTERIDE 0.5 MG CAP (AVODART) PO SCH (20:46)
[2016-10-30] MEDS: NITROFURANTOIN (MACROBID) 100 MG CAP PO SCH (20:46)
[2016-10-30] MEDS: METOPROLOL SUCC *XL* 25MG TAB (TopROL *XL*) PO SCH (20:47)
[2016-10-31] VITALS (7 sets, daily range): BP systolic 89–130; BP diastolic 54–78
[2016-10-31] MEDS: SLF 3 ML SYR IV SCH ×3 (05:42→21:22)
[2016-10-31 05:52] LABS: BASO % 0.4 % (0.0-1.0); EOS # 0.2 K/mm3 (0.0-0.50); LARGE UNSTAINED CELL # 0.1 K/mm3 (0.0-0.4); LARGE UNSTAINED CELL % 1.6 % (0.0-4.0); LYMPH # 1.1 K/mm3 (1.5-4.5); LYMPH % 18.7 % (24.0-44.0); MEAN CORPUSCULAR VOLUME 87.3 fl (80.0-96.0); MONO # 0.4 K/mm3 (0.0-0.8); MONO % 7.2 % (0.0-5.0); NEUTROPHILS # 3.8 K/mm3 (1.8-7.7); NEUTROPHILS % 68.1 % (36.0-66.0); PLATELET COUNT, AUTOMATED 196 k/mm3 (150-450); WHITE BLOOD COUNT 5.5 K/mm3 (4.0-10.0)
[2016-10-31 06:06] LABS: ANION GAP 5 MEQ/L (8-16); BLOOD UREA NITROGEN 30 MG/DL (7-18); CALCIUM LEVEL 8.5 MG/DL (8.8-10.2); CARBON DIOXIDE LEVEL 35 MEQ/L (21-32); CHLORIDE LEVEL 97 MEQ/L (98-107); CREATININE FOR GFR 1.06 MG/DL (0.70-1.30); GLOMERULAR FILTRATION RATE > 60.0 (>35); GLUCOSE, FASTING 199 MG/DL (83-110); SODIUM LEVEL 137 MEQ/L (136-145)
[2016-10-31] MEDS: MAGNESIUM OXIDE 400 MG TAB (MAG-OX) PO SCH ×2 (08:34→21:20)
[2016-10-31] MEDS: ATORVASTATIN 20 MG TAB PO SCH (08:34)
[2016-10-31] MEDS: TAMSULOSIN 0.4 MG CAP PO SCH (08:34)
[2016-10-31] MEDS: DIGOXIN 0.125 MG TAB PO SCH (08:37)
[2016-10-31] MEDS: HumaLOG INSULIN (NovoLOG) PER UNIT SC SCH ×4 (08:38→21:00)
[2016-10-31] MEDS: NYSTATIN CREAM 15 GM TOP SCH ×2 (08:39→21:22)
[2016-10-31] MEDS: FUROSEMIDE 40 MG/4 ML VIAL (J1940) IV SCH ×3 (08:39→17:07)
[2016-10-31] MEDS: ULTRACET TAB PO SCH (08:39)
[2016-10-31] MEDS ORDERED: DIGOXIN INJ 0.5 MG/2 ML AMP (J1160) IV STA (12:26)
--- NOTE | 2016-10-31 12:44 | IPNPDOC ---
Text Note Date of Service The patient was seen on 10/31/16. NOTE Subjective: Pt feeling better. SOB improving. No CP. Objective: Vitals: (see below) General: No acute distress, laying comfortably in bed. HEENT: Moist mucous membranes. Neck: No JVD or lymphadenopathy Cardiac: RRR, No murmurs Pulm: Coarse crackles and diminished breath sounds R>L. No wheezing, rhonchi Abd: NT/ND + BS Ext: 2+ pitting edema BLE. No cyanosis Labs (see below) Images: CT of the chest without IV contrast: is the portable plain film study dated 10/28/2016. There is a large right pleural effusion. There is a small left pleural effusion. There is an infiltrate versus mass posteriorly in the right middle lobe. There is no mediastinal or axillary adenopathy. The study is insensitive for hilar adenopathy. The thoracic aorta is unremarkable. Cardiac size is normal. The visualized upper abdominal contents are unremarkable. CT Chest with contrast 10/30/16 There is a large right pleural effusion status quo. There is a small left pleural effusion status quo. There is no pericardial effusion. Patchy and asymmetric opacities again seen in the right lower lobe status quo. There is fluid in the right minor fissure, status quo. The imaged upper abdomen and imaged osseous structures are unchanged. Evaluation of the lung moyer show them to be stable. The right lower lobe opacity is likely secondary to compressive atelectatic changes due to the effusion. No new masses are present. IMPRESSION: Essentially unchanged CT examination of the chest with findings as described above. Echocardiogram 10/30/16 CONCLUSIONS: 1. Multiple regional wall motion abnormalities of the left ventricle. Akinesis of the left ventricle apex. Akinesis of the anterior, anteroseptal and inferoseptal segments at the mid left ventricle level. Hypokinesis of the mid inferior wall segment. Hypokinesis of the basal, anteroseptal and basal inferoseptal LV segments. Normal wall motion and wall thickening involving the basal anterior, basal inferior, and the basilar mid inferolateral and anterolateral LV segments. Akinesis of the apical cap segment. No LV thrombus. Severe reduction overall LV systolic function. LVEF 20% by visual estimate. Unable to assess LV diastolic function in the setting of atrial fibrillation and severe mitral regurgitation. 2. Severe mitral annular calcification. Severe mitral regurgitation. No mitral stenosis. 3. Degenerative, mild calcific aortic valve disease with severe focal thickening and focal cuspid deposits of a three-cuspid aortic valve. Moderate reduction in mobility of the aortic cusps. Moderate aortic stenosis as judged by the dimensions index. Mild aortic regurgitation. 4. Moderate left atrial dilatation by visual assessment. 5. Suggestive of moderate elevation of pulmonary artery systolic pressure. Normal right ventricle size and systolic function. Moderate right atrial dilatation by visual assessment. 6. Inferior vena cava plethora. Suggestive of elevated central venous pressure of at least 20 mmHg. 7. The appearance of bilateral pleural effusion. Assessment/Plan 1.Acute Decompensated systolic heart failure- last EF 40% in August 2015--> now 20%. Severe MR noted. Dr. Lincoln consulted. On IV Lasix diuresing well. Continued on LARISA inhibitor and beta ran. Repeat echocardiogram (see above). EKG with no acute ST changes. Cardiac enzymes negative. 2. Large right pleural effusion- we'll continue with diuresis, New since 2015. Repeat CT chest with contrast. Plan for thoracentesis on Thursday. History of tobacco abuse. Consolidation noted, likely due to compressive atelectasis - remained afebrile/ no leukocytosis - Levaquin d/c. 3. Atrial fibrillation with RVR on Xarelto. Continue metoprolol, digoxin. Given an extra dose of digoxin given low bp. 4. History of CAD on Plavix, statin, and beta ran 5. YOEL on CPAP 6. BPH on Flomax 7. Chronic recurrent UTI- on nitrofurantoin DVT prophy: On Xarelto VS,Fishbone, I+O VS, Fishbone, I+O Laboratory Tests 10/31/16 05:09 Red Blood Count 3.74 L, Mean Corpuscular Volume 87.3, Mean Corpuscular Hemoglobin 28.0, Mean Corpuscular Hemoglobin Concent 32.0, Red Cell Distribution Width 15.0 H, Neutrophils (%) (Auto) 68.1 H, Lymphocytes (%) (Auto ) 18.7 L, Monocytes (%) (Auto) 7.2 H, Eosinophils (%) (Auto) 4.0 H, Basophils (% ) (Auto) 0.4, Neutrophils # (Auto) 3.8, Lymphocytes # (Auto) 1.1 L, Monocytes # (Auto) 0.4, Eosinophils # (Auto) 0.2, Basophils # (Auto) 0.0, Calcium Level 8.5 L Vital Signs Date Time Temp Pulse Resp B/P (MAP) Pulse Ox O2 Delivery O2 Flow Rate FiO2 10/31/16 08:43 92/58 (69) 10/31/16 08:39 20 10/31/16 08:37 98 10/31/16 07:32 Nasal Cannula 10/31/16 07:30 96.8 98 2.0 I&O- Last 24 Hours up to 6 AM 10/31/16 06:00 Intake Total 1860 ml Output Total 1675 ml Balance 185 ml STEPHAN STAPLES MD Oct 31, 2016 12:44
--- NOTE | 2016-10-31 16:10 | ECGEPIP ---
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
[2016-10-31] MEDS: RIVAROXABAN 20 MG TAB (XARELTO) PO SCH (17:07)
--- NOTE | 2016-10-31 19:57 | CR ---
DATE OF CONSULTATION: 10/31/2016 REFERRING PROVIDER: Dr. Marques Oleary PRIMARY CARE PROVIDER: Dr. Ezequiel Leo PRIMARY STOPER: Dr. Lou in [place], [place] REASON FOR THE CONSULT: Congestive heart failure, atrial fibrillation. HISTORY OF THE PRESENT ILLNESS: An 86-year-old woman with a long history of heart disease, including myocardial infarction with percutaneous transluminal coronary angioplasty (PTCA)/stent and the last event was in the month of July of 2015. He also has a history of cardiomyopathy with left ventricular systolic dysfunction, atrial fibrillation that has been chronic and persistent, hypertension, hyperlipidemia, diabetes mellitus, as well as gastroesophageal reflux disease (GERD) and BPH, arthritis. Mr. Giorgio Rodriguez stated that he came to the hospital about 3 days ago because of increasing shortness of breath with activities and increased pedal edema. He also was having what seems to be orthopnea but denies any paroxysmal nocturnal dyspnea (PND). He describes that his heart rate has been going fast. He has a cough but no hemoptysis or fever. There is no nausea, vomiting, diarrhea, melena or hematemesis. There is no focal manifestation. There is no active swelling or redness of the joints. He has a past medical history positive for coronary artery disease with myocardial infarction in 1994 and as well as on 08/03/2015, and at that time, he was found to have an anterior wall myocardial infarction and cardiac catheterization done at [facility] was followed by PTCA/drug-eluting stent (CHENTE) to LAD. Left ventricular ejection fraction (LVEF) at that time was estimated to be 59% He had an echocardiogram done in the month of November of 2015 and at the time, LVEF was reported to be 45% with presence of mild to moderate tricuspid regurgitation, mild aortic regurgitation. He does also have a history of longstanding diabetes mellitus for more than 20 years, hypertension, hyperlipidemia, atrial fibrillation that has been chronic and persistent and treated in the past, last year, with mechanical cardioversion. He has been on chronic anticoagulation therapy with Coumadin. His major medical problems are GERD, BPH, and arthritis. There is no history of known cerebrovascular accident, thyroid disorders. There is no history of sudden cardiac . He also has a history of positive sleep apnea and has been on a continuous positive airway pressure (CPAP) machine with bled in oxygen at night and during the day, he uses oxygen supplement via nasal cannula. Past surgical history is positive for bilateral knee replacement, bilateral cataract extraction, surgery done on one of his lumbar spine discs, as well as removal of bladder stones. MEDICATIONS PRIOR TO COMING TO THE HOSPITAL: - Ambien 12.5 mg by mouth daily at hour of sleep - tamsulosin 0.4 mg by mouth daily - magnesium oxide 250 mg by mouth daily - vitamin B12 5000 mcg by mouth daily - vitamin D 50,000 by mouth every 2 weeks - Tylenol 500 mg by mouth daily - Plavix 75 mg by mouth daily - digoxin 0.125 mg by mouth daily - dutasteride 0.5 mg by mouth daily - furosemide 60 mg by mouth daily - lisinopril 5 mg tablet, two tablets by mouth daily - nitroglycerin sublingual 0.4 mg as needed for chest pain - tramadol one tablet by mouth daily - rivaroxaban/Xarelto 20 mg by mouth daily - glipizide 5 mg by mouth daily nightly - metformin 500 mg by mouth twice a day - metoprolol succinate 25 mg by mouth daily - nitrofurantoin as directed - omeprazole 10 mg by mouth daily - atorvastatin 40 mg by mouth daily. CURRENT MEDICATIONS: - Lasix 40 mg IV twice a day - magnesium oxide 400 mg by mouth twice a day - atorvastatin 40 mg by mouth daily - digoxin 0.125 mg by mouth daily - tamsulosin HCl 0.4 mg by mouth daily - tramadol 37.5/225 mg one tablet by mouth daily - nystatin applied to the right groin twice a day - Humulin insulin coverage - Plavix 75 mg by mouth daily - Avodart/dutasteride 0.5 mg by mouth daily - metoprolol succinate 25 mg by mouth daily - nitrofurantoin 100 mg IV daily - zolpidem tartrate 12.5 mg by mouth nightly - rivaroxaban 20 mg by mouth daily - regular insulin coverage as well as D50 as needed for hypoglycemia, glucose tablets and Glucagon tablet FAMILY HISTORY: Noncontributory. SOCIAL HISTORY: The patient lives alone, and he has a daughter who lives next door to him, and very supportive. He denies any smoking. He had stopped smoking some time around 1998. He denies ethyl alcohol (ETOH) abuse or illicit drugs. ALLERGIES: SULFA AND RELATED FAMILY. PHYSICAL EXAMINATION: The patient is alert, in no acute distress at rest and his last vital signs today revealed a blood pressure of 130/78 with a pulse of 80, respirations 20 and his maximum temperature is 98.5 degrees Fahrenheit with an oxygen saturation of 98% on 2 liters nasal cannula. Examination of the head, ears, eyes, nose and throat: Atraumatic. Neck is supple with distended jugular. The lungs revealed decreased breath sounds at the right base. No wheezing or crackles. The heart examination revealed irregular heart sounds without gallops. The point of maximum impulse (PMI) is displaced inferiorly and laterally. There is no rub. Extremities reveal +1 bilateral pedal edema. Neurologic examination is negative for focal deficit. LABORATORY: BMP done today revealed a sodium of 137, potassium 4.0, chloride 97, CO2 35, BUN 30, creatinine 1.06, GFR more than 60, fasting glucose 199 and calcium 8.5. Serum magnesium is 2.0. Serum troponin remains normal at about 0.02. CBC done today revealed a WBC of 5.5, hemoglobin 10.4, hematocrit 32.6 and platelets 196,000. PT is 23.2 with an INR of 2.05 and a PTT of 40.4, done on 10/28/2016. Serum digoxin done on 10/28/2016 is 1.6. Blood culture has been negative. Chest x-ray on admission, 10/28/2016, was reviewed and revealed bilateral pleural effusion but more on the right than the left. Chest CT done on 10/30/2016 revealed a large right pleural effusion as well as a smaller one on the left side. No pericardial effusion. Electrocardiogram on admission, 10/28/2016, revealed atrial fibrillation at 102 beats per minute, isolated premature ventricular contractions (PVCs) versus aberrant beats, intraventricular conduction delay (IVCD) and probably prior anteroseptal infarct. There is nonspecific ST-T abnormalities. There may be underlying left ventricular hypertrophy, IVCD. There is also nonspecific ST-T abnormalities. Electrocardiogram done today, 10/31/2016, revealed atrial fibrillation at a rate of 97 beats per minute, left axis deviation, mild IVCD, isolated PVCs and nonspecific ST-T abnormalities. No remarkable changes but slower heart rate from admission. Echocardiogram done on 10/28/2016 revealed findings consistent with a severely depressed global left ventricular systolic function with a left ventricular systolic ejection fraction estimated at 25%. There was severe mitral annulus calcification with severe mitral regurgitation, mild calcific aortic stenosis and mild aortic regurgitation. There was inferior vena cava plethora suggestive of elevated central venous pressure. IMPRESSION: 1. Decompensated congestive heart failure secondary to left ventricular systolic dysfunction, acute on chronic, in this 86-year-old male with ischemic cardiomyopathy and chronic and persistent atrial fibrillation. The patient stated that his symptoms have improved since his hospitalization. His medications were reviewed, and I will continue the same. If no contraindications and providing that his BUN and creatinine remain stable, we shall restart him on his angiotensin-converting enzyme (LARISA) inhibitor/lisinopril, but can be restarted at a lower dose. We will continue with the IV Lasix. It seems that his symptoms have improved significantly as well as his pedal edema. He would benefit from a thoracentesis that can be both for diagnostic and prognostic purpose but most likely is related to underlying left ventricular systolic dysfunction. It seems that he has shown some mild deterioration in his LVEF and this will need to be discussed with his family and his outside international accounting manager. He might need some reevaluation to check his underlying coronary artery disease. He also might need a LifeVest upon discharge from the hospital until he sees his primary international accounting manager. Please do not hesitate to call if any questions. Will continue to monitor him along with you while in the hospital and over the weekend, Dr. Lord will be seeing him. 2. History of coronary artery disease with history of myocardial infarction in 1994 as well as in 2016, and he appears to be stable, on antiplatelet therapy as well as statin, beta ran, and he can be restarted on his LARISA inhibitor but at a lower dose if no contraindications. He denies any chest pain, and his serum troponin remains negative since hospitalization. 3. Atrial fibrillation that has been chronic and persistent and still not quite under control, but this has improved. He will continue the Xarelto, and I will increase his beta ran. Will continue to monitor him telemetry. He is on two AV blocking agents with digoxin and a beta ran/metoprolol succinate. 4. Valvular heart disease involving the aortic valve with significant aortic regurgitation reported in the past. 5. History of hypertension, under control. 6. History of hyperlipidemia, on a statin. 7. History of diabetes mellitus; this is being addressed and on treatment. 8. History of BPH. 9. History of insomnia. 10. History of GERD. 11. History of obstructive sleep apnea, on treatment. It was a pleasure to participate in the care of Mr. Giorgio Rodriguez for his underlying cardiac condition. I will continue to monitor along with you while int [facility]. Dr. Lord will start seeing him starting tomorrow, 11/01/2016.
[2016-10-31] MEDS: NITROFURANTOIN (MACROBID) 100 MG CAP PO SCH (21:20)
[2016-10-31] MEDS: zolPIDEM CR 6.25MG TABLET (AMBIEN CR) PO SCH (21:20)
[2016-10-31] MEDS: DUTASTERIDE 0.5 MG CAP (AVODART) PO SCH (21:20)
[2016-10-31] MEDS: METOPROLOL TART 25 MG TABLET PO SCH (21:21)
[2016-10-31] MEDS: CLOPIDOGREL 75 MG TAB PO SCH (21:21)
[2016-11-01 04:00] VITALS: BP 112/59
[2016-11-01 05:44] LABS: BASO % 0.4 % (0.0-1.0); EOS # 0.2 K/mm3 (0.0-0.50); EOS % 3.6 % (0.0-3.0); LARGE UNSTAINED CELL # 0.1 K/mm3 (0.0-0.4); LARGE UNSTAINED CELL % 2.8 % (0.0-4.0); LYMPH # 1.1 K/mm3 (1.5-4.5); LYMPH % 20.4 % (24.0-44.0); MEAN CORPUSCULAR HEMOGLOBIN 28.3 pg (27.0-33.0); MEAN CORPUSCULAR HGB CONC 32.2 g/dl (32.0-36.5); MEAN CORPUSCULAR VOLUME 87.8 fl (80.0-96.0); MONO # 0.4 K/mm3 (0.0-0.8); MONO % 7.7 % (0.0-5.0); NEUTROPHILS # 3.4 K/mm3 (1.8-7.7); NEUTROPHILS % 65.2 % (36.0-66.0); PLATELET COUNT, AUTOMATED 210 k/mm3 (150-450); RED CELL DISTRIBUTION WIDTH 14.8 % (11.5-14.5); WHITE BLOOD COUNT 5.2 K/mm3 (4.0-10.0)
[2016-11-01 06:08] LABS: ANION GAP 6 MEQ/L (8-16); BLOOD UREA NITROGEN 28 MG/DL (7-18); CALCIUM LEVEL 8.3 MG/DL (8.8-10.2); CARBON DIOXIDE LEVEL 34 MEQ/L (21-32); CHLORIDE LEVEL 98 MEQ/L (98-107); CREATININE FOR GFR 1.01 MG/DL (0.70-1.30); GLOMERULAR FILTRATION RATE > 60.0 (>35); GLUCOSE, FASTING 175 MG/DL (83-110); MAGNESIUM LEVEL 2.1 MG/DL (1.8-2.4); POTASSIUM SERUM 4.1 MEQ/L (3.5-5.1); SODIUM LEVEL 138 MEQ/L (136-145)
[2016-11-01] MEDS: SLF 3 ML SYR IV SCH ×3 (06:56→21:11)
[2016-11-01] MEDS: METOPROLOL TART 25 MG TABLET PO SCH ×3 (06:56→21:10)
[2016-11-01 08:00] VITALS: BP 100/67
[2016-11-01] MEDS: ATORVASTATIN 20 MG TAB PO SCH (08:43)
[2016-11-01] MEDS: HumaLOG INSULIN (NovoLOG) PER UNIT SC SCH ×4 (08:43→21:00)
[2016-11-01] MEDS: NYSTATIN CREAM 15 GM TOP SCH ×2 (08:44→21:10)
[2016-11-01] MEDS: DIGOXIN 0.125 MG TAB PO SCH (08:44)
[2016-11-01] MEDS: MAGNESIUM OXIDE 400 MG TAB (MAG-OX) PO SCH ×2 (08:44→21:10)
[2016-11-01] MEDS: TAMSULOSIN 0.4 MG CAP PO SCH (08:44)
[2016-11-01] MEDS: ULTRACET TAB PO SCH (08:48)
[2016-11-01] MEDS ORDERED: FUROSEMIDE 20 MG/2 ML VIAL (J1940) IV ONE ×2 (09:00→18:00)
[2016-11-01] MEDS: FUROSEMIDE 40 MG/4 ML VIAL (J1940) IV SCH ×2 (09:00→17:00)
--- NOTE | 2016-11-01 11:37 | IPNPDOC ---
Text Note Date of Service The patient was seen on 11/01/16. NOTE Subjective: Pt feeling better. Mild SOB. No CP. Objective: Vitals: (see below) General: No acute distress, laying comfortably in bed. HEENT: Moist mucous membranes. Neck: No JVD or lymphadenopathy Cardiac: RRR, No murmurs Pulm: Coarse crackles and diminished breath sounds R>L. No wheezing, rhonchi Abd: NT/ND + BS Ext: 1+ pitting edema BLE, improved. No cyanosis Labs (see below) Images: CT of the chest without IV contrast: is the portable plain film study dated 10/28/2016. There is a large right pleural effusion. There is a small left pleural effusion. There is an infiltrate versus mass posteriorly in the right middle lobe. There is no mediastinal or axillary adenopathy. The study is insensitive for hilar adenopathy. The thoracic aorta is unremarkable. Cardiac size is normal. The visualized upper abdominal contents are unremarkable. CT Chest with contrast 10/30/16 There is a large right pleural effusion status quo. There is a small left pleural effusion status quo. There is no pericardial effusion. Patchy and asymmetric opacities again seen in the right lower lobe status quo. There is fluid in the right minor fissure, status quo. The imaged upper abdomen and imaged osseous structures are unchanged. Evaluation of the lung moyer show them to be stable. The right lower lobe opacity is likely secondary to compressive atelectatic changes due to the effusion. No new masses are present. IMPRESSION: Essentially unchanged CT examination of the chest with findings as described above. Echocardiogram 10/30/16 CONCLUSIONS: 1. Multiple regional wall motion abnormalities of the left ventricle. Akinesis of the left ventricle apex. Akinesis of the anterior, anteroseptal and inferoseptal segments at the mid left ventricle level. Hypokinesis of the mid inferior wall segment. Hypokinesis of the basal, anteroseptal and basal inferoseptal LV segments. Normal wall motion and wall thickening involving the basal anterior, basal inferior, and the basilar mid inferolateral and anterolateral LV segments. Akinesis of the apical cap segment. No LV thrombus. Severe reduction overall LV systolic function. LVEF 20% by visual estimate. Unable to assess LV diastolic function in the setting of atrial fibrillation and severe mitral regurgitation. 2. Severe mitral annular calcification. Severe mitral regurgitation. No mitral stenosis. 3. Degenerative, mild calcific aortic valve disease with severe focal thickening and focal cuspid deposits of a three-cuspid aortic valve. Moderate reduction in mobility of the aortic cusps. Moderate aortic stenosis as judged by the dimensions index. Mild aortic regurgitation. 4. Moderate left atrial dilatation by visual assessment. 5. Suggestive of moderate elevation of pulmonary artery systolic pressure. Normal right ventricle size and systolic function. Moderate right atrial dilatation by visual assessment. 6. Inferior vena cava plethora. Suggestive of elevated central venous pressure of at least 20 mmHg. 7. The appearance of bilateral pleural effusion. Assessment/Plan 1.Acute Decompensated systolic heart failure- last EF 40% in August 2015--> now 20%. Severe MR noted. Dr. Lincoln consulted. On IV Lasix diuresing well. Continued on LARISA inhibitor and beta ran. Repeat echocardiogram (see above). EKG with no acute ST changes. Cardiac enzymes negative. Will need life vest on d/c. 2. Large right pleural effusion- we'll continue with diuresis, New since 2015. Repeat CT chest with contrast. Plan for thoracentesis on Thursday. History of tobacco abuse. Consolidation noted, likely due to compressive atelectasis - remained afebrile/ no leukocytosis - Levaquin d/c. 3. Atrial fibrillation with RVR on Xarelto. Continue metoprolol, digoxin. 4. History of CAD on Plavix, statin, and beta ran 5. YOEL on CPAP 6. BPH on Flomax 7. Chronic recurrent UTI- on nitrofurantoin DVT prophy: On Xarelto Prognosis is guarded. VS,Dinorae, I+O VS, Dinorae, I+O Laboratory Tests 11/01/16 05:10 Red Blood Count 3.88 L, Mean Corpuscular Volume 87.8, Mean Corpuscular Hemoglobin 28.3, Mean Corpuscular Hemoglobin Concent 32.2, Red Cell Distribution Width 14.8 H, Neutrophils (%) (Auto) 65.2, Lymphocytes (%) (Auto) 20.4 L, Monocytes (%) (Auto) 7.7 H, Eosinophils (%) (Auto) 3.6 H, Basophils (%) (Auto) 0.4, Neutrophils # (Auto) 3.4, Lymphocytes # (Auto) 1.1 L, Monocytes # ( Auto) 0.4, Eosinophils # (Auto) 0.2, Basophils # (Auto) 0.0, Calcium Level 8.3 L , Total Creatine Kinase 183 Vital Signs Date Time Temp Pulse Resp B/P (MAP) Pulse Ox O2 Delivery O2 Flow Rate FiO2 11/01/16 08:48 18 11/01/16 08:44 84 11/01/16 08:00 97.6 100/67 (78) 100 Nasal Cannula 2.0 I&O- Last 24 Hours up to 6 AM 11/01/16 06:00 Intake Total 1240 ml Output Total 2100 ml Balance -860 ml STEPHAN STAPLES MD Nov 01, 2016 11:37
[2016-11-01 12:00] VITALS: BP 102/60
--- NOTE | 2016-11-01 13:00 | IPN ---
DATE: 11/01/2016 Mr. Rodriguez is a very pleasant elderly gentleman. He tells me that he is feeling better since he came in but he still feels quite short of breath with fairly minimal activity. Denies any chest pain or palpitations. Blood pressure is 100/67, heart rate has been in 70s and 80s. He is afebrile. Saturation is 100% on 2 liters of oxygen by nasal cannula. Fluid balance yesterday was about 700 mL negative. Weight is down to 85 kg. His jugular venous pulse (JVP) is still high, about 4 cm above clavicle. Lungs reveal diminished sounds over right about half of the lung field and about one-quarter of the left lung field. Heart exam reveals irregular rhythm. There is holosystolic murmur at the apex about 3/6 intensity consistent with mitral insufficiency. Abdomen is soft, nontender. There is approximately 1-2+ edema roughly to the level of knees. Laboratory trevino: CBC: Hemoglobin 11, hematocrit 34, platelet count 110,000 and WBC count 5.2. Basic metabolic panel: Potassium 4.1, BUN 28, creatinine 1.1, glucose 175. Three sets of cardiac enzymes have been negative. Digoxin level is 1.6 and INR is 2.0. ASSESSMENT AND PLAN: Mr. Rodriguez is an 86-year-old man who has chronic atrial fibrillation, coronary artery disease with history of percutaneous intervention and severe ischemic cardiomyopathy with severe LV systolic dysfunction and significant mitral insufficiency that was felt to be severe by the echocardiogram performed during this admission. As far as the atrial fibrillation is concerned , he is chronically anticoagulated with Xarelto. The rate is still not perfect but on combination of digoxin and metoprolol is improving. He continues to be diuresed. I would continue the current management at this point. There is a tentative plan for thoracentesis on Thursday. I will request his records from [place] to get a better idea about his history. OPAL
[2016-11-01 16:00] VITALS: BP 102/62
[2016-11-01] MEDS: zolPIDEM CR 6.25MG TABLET (AMBIEN CR) PO SCH (19:19)
[2016-11-01 19:58] VITALS: BP 103/69
[2016-11-01] MEDS: SODIUM CHLORIDE NASAL 0.65% SPRAY BTL (OCEAN) SCH (21:09)
[2016-11-01] MEDS: DUTASTERIDE 0.5 MG CAP (AVODART) PO SCH (21:10)
[2016-11-01] MEDS: CLOPIDOGREL 75 MG TAB PO SCH (21:10)
[2016-11-01] MEDS: NITROFURANTOIN (MACROBID) 100 MG CAP PO SCH (21:11)
[2016-11-01] MEDS ORDERED: zolPIDEM TARTRATE 5 MG TAB PO ONE (23:30)
[2016-11-01 23:59] VITALS: BP 96/61
[2016-11-02 04:00] VITALS: BP 101/60
[2016-11-02 05:29] LABS: BASO % 0.4 % (0.0-1.0); EOS # 0.2 K/mm3 (0.0-0.50); EOS % 3.8 % (0.0-3.0); LARGE UNSTAINED CELL # 0.1 K/mm3 (0.0-0.4); LYMPH # 1.2 K/mm3 (1.5-4.5); LYMPH % 19.7 % (24.0-44.0); MEAN CORPUSCULAR HEMOGLOBIN 28.8 pg (27.0-33.0); MEAN CORPUSCULAR HGB CONC 32.9 g/dl (32.0-36.5); MEAN CORPUSCULAR VOLUME 87.5 fl (80.0-96.0); MONO # 0.4 K/mm3 (0.0-0.8); MONO % 7.7 % (0.0-5.0); NEUTROPHILS # 3.7 K/mm3 (1.8-7.7); NEUTROPHILS % 66.3 % (36.0-66.0); PLATELET COUNT, AUTOMATED 201 k/mm3 (150-450); WHITE BLOOD COUNT 5.6 K/mm3 (4.0-10.0)
[2016-11-02 05:37] LABS: ANION GAP 6 MEQ/L (8-16); BLOOD UREA NITROGEN 31 MG/DL (7-18); CALCIUM LEVEL 8.6 MG/DL (8.8-10.2); CARBON DIOXIDE LEVEL 32 MEQ/L (21-32); CHLORIDE LEVEL 97 MEQ/L (98-107); CREATININE FOR GFR 1.05 MG/DL (0.70-1.30); GLOMERULAR FILTRATION RATE > 60.0 (>35); GLUCOSE, FASTING 226 MG/DL (83-110); MAGNESIUM LEVEL 2.2 MG/DL (1.8-2.4); POTASSIUM SERUM 4.3 MEQ/L (3.5-5.1); SODIUM LEVEL 135 MEQ/L (136-145)
[2016-11-02] MEDS: METOPROLOL TART 25 MG TABLET PO SCH ×3 (05:53→21:39)
[2016-11-02] MEDS: SLF 3 ML SYR IV SCH ×3 (06:42→21:39)
[2016-11-02 07:35] VITALS: BP 111/70
[2016-11-02] MEDS: IPRATROPIUM 0.5MG/ALBUTEROL 2.5MG INH SOL UD 3ML (DUONEB)(J7620) NEB SCH ×6 (08:00→23:54)
[2016-11-02] MEDS: HumaLOG INSULIN (NovoLOG) PER UNIT SC SCH ×4 (08:22→21:00)
[2016-11-02] MEDS ORDERED: ALBUTEROL SULFATE 2.5 MG/0.5 ML INH NEB SOLN INH PRN (08:30)
[2016-11-02] MEDS ORDERED: MORPHINE 2 MG/ML 1ML SYRINGE As Ordered ONE (08:41)
[2016-11-02 08:46] LABS: ABG BASE EXCESS 4.8 (-2.0-2.0); ABG HCO3 29.4 MEQ/L (22.0-26.0); ABG PARTIAL PRESSURE CO2 43.8 mmHg (35.0-45.0); ABG PARTIAL PRESSURE O2 106.1 mmHg (75.0-100.0); ABG STANDARD HCO3 28.8 MEQ/L (22.0-26.0); ABG TOTAL CO2 30.8 MEQ/L (23.0-31.0); ABG pH (ARTERIAL) 7.445 UNITS (7.350-7.450)
[2016-11-02] MEDS ORDERED: FUROSEMIDE 20 MG/2 ML VIAL (J1940) IV SCH (09:00)
--- NOTE | 2016-11-02 10:10 | REP ---
PORTABLE CHEST, ONE VIEW: HISTORY: Shortness of breath. Bilateral infiltrates are present in the right lung and left lower lobe, unchanged compared to the previous study. A right pleural effusion is present, unchanged compared to the previous study. Heart size can not be evaluated secondary to the bilateral infiltrates. IMPRESSION: 1. Bilateral infiltrates, unchanged compared to the previous study. 2. Right pleural effusion, unchanged compared to the previous study. Signed by Matt Ann MD 11/02/2016 10:11 A
[2016-11-02 11:50] VITALS: BP 102/70
--- NOTE | 2016-11-02 11:57 | IPN ---
DATE: 11/02/2016 Mr. Rodriguez continues to be approximately the same. He tells me that he got suddenly short of breath this morning and had to apply his bilevel positive airway pressure (BiPAP) in order to be able to breathe. He denies any chest pain. Otherwise, has no new complaints. His vital signs, blood pressure 111/70 but he was as low as 96 systolic. Heart rate has been in 70s to 90s. He is afebrile. Saturation is 96% on 2 liters of oxygen by nasal cannula. Disappointingly, his urine output yesterday was not very high and consequently he actually had a positive fluid balance. Weight is 86.1 kg today. He is alert and oriented, very pleasant. His jugular venous pulse (JVP) is quite high, at least 5 or 6 cm above clavicle in semiupright position. Lungs are relatively clear on the left. On the right side though, there are diminished sounds at least half lung field. I do not appreciate any crackles. Heart exam reveals somewhat muffled heart sounds. It is irregularly irregular rhythm. I do not appreciate gallop by there is a murmur at the apex, 2-3/6 intensity blowing consistent with mitral insufficiency (MR). Abdomen is soft. I do not appreciate any shift in dullness or other evidence for ascites. There is approximately 2+ peripheral edema to the level of his knees. Neurologically, he is intact. I do not appreciate any skin lesions. Laboratory trevino: Basic metabolic panel reveal sodium 135, potassium 4.3, BUN 31, creatinine 1 and glucose 226. CBC: Hemoglobin 11, hematocrit 33 and platelet count 201,000. ASSESSMENT AND PLAN: Mr. Rodriguez is an 86-year-old man who has ischemic cardiomyopathy with severe left ventricular systolic dysfunction and concomitant severe mitral insufficiency. He presented with exacerbation congestive heart failure. He has chronic atrial fibrillation. Unfortunately, this all is harboring of rather poor prognosis. Severe MR in setting of LV dysfunction is usually intractable problem. Nevertheless, at this point, he is clearly volume overloaded and we should continue attempt to achieve some diuresis. I am going to increase the dose of furosemide markedly in attempt to achieve net negative balance. Simultaneously, there is a plan for right-sided thoracentesis. Dr. Pruitt approached me today whether I should pursue and even though I do not believe that it has to be done today, I certainly do not see any reason why wait another day if it can be safely accomplished today. He is chronically on Xarelto and that should be taken into consideration.
[2016-11-02] MEDS: SODIUM CHLORIDE NASAL 0.65% SPRAY BTL (OCEAN) SCH ×2 (12:24→21:36)
[2016-11-02] MEDS: FUROSEMIDE 40 MG/4 ML VIAL (J1940) IV SCH ×3 (12:24→23:51)
[2016-11-02] MEDS: DIGOXIN 0.125 MG TAB PO SCH (12:24)
[2016-11-02] MEDS: ATORVASTATIN 20 MG TAB PO SCH (12:24)
[2016-11-02] MEDS: TAMSULOSIN 0.4 MG CAP PO SCH (12:25)
[2016-11-02] MEDS: NYSTATIN CREAM 15 GM TOP SCH ×2 (12:25→21:36)
[2016-11-02] MEDS: MAGNESIUM OXIDE 400 MG TAB (MAG-OX) PO SCH ×2 (12:25→21:40)
[2016-11-02] MEDS: ULTRACET TAB PO SCH (12:25)
--- NOTE | 2016-11-02 13:17 | CR ---
DATE OF CONSULTATION: 11/02/2016 REQUESTING PROVIDER: The patient is seen at the request of Dr. Oleary of the hospitalist service for a pleural effusion. HISTORY OF PRESENT ILLNESS: The patient is an 86-year-old white male with known congestive heart failure (CHF) with an ejection fraction of approximately 20%, which is decreased/deteriorating, according to Dr. Lord, from his last echocardiogram earlier this year in [place] when it was 40%. He also has coronary artery disease. He is being treated for congestive heart failure (CHF) with diuresis. According to the nursing staff, he initially came in quite edematous, which is now fairly well resolved. He woke up this morning and he was feeling quite short of breath. He always sleeps in an inclined position as he has orthopnea when he is flat. He also wears continuous positive airway pressure (CPAP). This morning he just could not catch his breath and Dr. Oleary called me to consider draining his chest today rather than the scheduled drainage for tomorrow. He was given more diuretic and 2 mg of morphine. He now is breathing a lot better. He is able to speak in full sentences and eat his lunch. The patient is presently on Pradaxa and Xarelto. He has atrial fibrillation, along with coronary artery disease with a stent requiring two anticoagulants. His chest CT shows a sizable pleural effusion on the right. Chest x-ray shows a haze also on the right. IMPRESSION: 1. Pleural effusion. 2. Congestive heart failure (CHF). 3. Atrial fibrillation. 4. Severe mitral regurgitation. PLAN AND DISCUSSION: He is vastly improved with the diuresis this morning. As he is on two anticoagulants, we are not pressed to the wall to drain his chest immediately today. I would therefore recommend that we stick to the plan to have him undergo thoracentesis tomorrow under ultrasound guidance. Should he become more short of breath, I will always be available to immediately drain his chest.
--- NOTE | 2016-11-02 14:15 | IPNPDOC ---
Text Note Date of Service The patient was seen on 11/02/16. NOTE Subjective: Pt was very dyspneic today. Mild improvement after IV lasix and morphine. No CP/Palpitations. Objective: Vitals: (see below) General: No acute distress, laying comfortably in bed. HEENT: Moist mucous membranes. Neck: No JVD or lymphadenopathy Cardiac: RRR, No murmurs Pulm: Labored prior to diuretics, coarse crackles and diminished breath sounds R >L. No wheezing, rhonchi. Improved after diuretics. Abd: NT/ND + BS Ext: 1+ pitting edema BLE, improved from yesterday. No cyanosis Labs (see below) Images: CT of the chest without IV contrast: is the portable plain film study dated 10/28/2016. There is a large right pleural effusion. There is a small left pleural effusion. There is an infiltrate versus mass posteriorly in the right middle lobe. There is no mediastinal or axillary adenopathy. The study is insensitive for hilar adenopathy. The thoracic aorta is unremarkable. Cardiac size is normal. The visualized upper abdominal contents are unremarkable. CT Chest with contrast 10/30/16 There is a large right pleural effusion status quo. There is a small left pleural effusion status quo. There is no pericardial effusion. Patchy and asymmetric opacities again seen in the right lower lobe status quo. There is fluid in the right minor fissure, status quo. The imaged upper abdomen and imaged osseous structures are unchanged. Evaluation of the lung moyer show them to be stable. The right lower lobe opacity is likely secondary to compressive atelectatic changes due to the effusion. No new masses are present. IMPRESSION: Essentially unchanged CT examination of the chest with findings as described above. Echocardiogram 10/30/16 CONCLUSIONS: 1. Multiple regional wall motion abnormalities of the left ventricle. Akinesis of the left ventricle apex. Akinesis of the anterior, anteroseptal and inferoseptal segments at the mid left ventricle level. Hypokinesis of the mid inferior wall segment. Hypokinesis of the basal, anteroseptal and basal inferoseptal LV segments. Normal wall motion and wall thickening involving the basal anterior, basal inferior, and the basilar mid inferolateral and anterolateral LV segments. Akinesis of the apical cap segment. No LV thrombus. Severe reduction overall LV systolic function. LVEF 20% by visual estimate. Unable to assess LV diastolic function in the setting of atrial fibrillation and severe mitral regurgitation. 2. Severe mitral annular calcification. Severe mitral regurgitation. No mitral stenosis. 3. Degenerative, mild calcific aortic valve disease with severe focal thickening and focal cuspid deposits of a three-cuspid aortic valve. Moderate reduction in mobility of the aortic cusps. Moderate aortic stenosis as judged by the dimensions index. Mild aortic regurgitation. 4. Moderate left atrial dilatation by visual assessment. 5. Suggestive of moderate elevation of pulmonary artery systolic pressure. Normal right ventricle size and systolic function. Moderate right atrial dilatation by visual assessment. 6. Inferior vena cava plethora. Suggestive of elevated central venous pressure of at least 20 mmHg. 7. The appearance of bilateral pleural effusion. Assessment/Plan 1.Acute Decompensated systolic heart failure- last EF 40% in August 2015--> now 20%. Severe MR noted. Dr. Lincoln consulted. On IV Lasix, increased by cardio to obtain net negative. Continued on LARISA inhibitor and beta ran. Repeat echocardiogram (see above). EKG with no acute ST changes. Cardiac enzymes negative. Will need life vest on d/c. 2. Large right pleural effusion- we'll continue with diuresis, New since 2015. Repeat CT chest with contrast. Plan for thoracentesis on Thursday. History of tobacco abuse. Consolidation noted, likely due to compressive atelectasis - remained afebrile/ no leukocytosis - Levaquin d/c. If patient decompensates, Dr. Pruitt will be available to drain prior to tomorrow. 3. Atrial fibrillation with RVR on Xarelto. Continue metoprolol, digoxin. 4. History of CAD on Plavix, statin, and beta ran 5. YOEL on CPAP 6. BPH on Flomax 7. Chronic recurrent UTI- on nitrofurantoin DVT prophy: On Xarelto, which is currently being held for thoracentesis tomorrow. Prognosis is guarded. VS,Fishbone, I+O VS, Fishbone, I+O Laboratory Tests 11/02/16 04:52 Red Blood Count 3.83 L, Mean Corpuscular Volume 87.5, Mean Corpuscular Hemoglobin 28.8, Mean Corpuscular Hemoglobin Concent 32.9, Red Cell Distribution Width 15.0 H, Neutrophils (%) (Auto) 66.3 H, Lymphocytes (%) (Auto ) 19.7 L, Monocytes (%) (Auto) 7.7 H, Eosinophils (%) (Auto) 3.8 H, Basophils (% ) (Auto) 0.4, Neutrophils # (Auto) 3.7, Lymphocytes # (Auto) 1.2 L, Monocytes # (Auto) 0.4, Eosinophils # (Auto) 0.2, Basophils # (Auto) 0.0, Calcium Level 8.6 L Vital Signs Date Time Temp Pulse Resp B/P (MAP) Pulse Ox O2 Delivery O2 Flow Rate FiO2 11/02/16 12:25 22 11/02/16 12:24 86 11/02/16 12:21 Nasal Cannula 2.0 11/02/16 11:50 97.3 102/70 (81) 99 I&O- Last 24 Hours up to 6 AM 11/02/16 06:00 Intake Total 1200 ml Output Total 750 ml Balance 450 ml STEPHAN STAPLES MD Nov 02, 2016 14:15
[2016-11-02 16:00] VITALS: BP 116/76
[2016-11-02 20:00] VITALS: BP 114/59
[2016-11-02] MEDS: NITROFURANTOIN (MACROBID) 100 MG CAP PO SCH (21:39)
[2016-11-02] MEDS: zolPIDEM CR 6.25MG TABLET (AMBIEN CR) PO SCH (21:40)
[2016-11-02] MEDS: DUTASTERIDE 0.5 MG CAP (AVODART) PO SCH (21:40)
[2016-11-03] VITALS (13 sets, daily range): BP systolic 99–116; BP diastolic 53–71; O2SAT 96
[2016-11-03] MEDS: IPRATROPIUM 0.5MG/ALBUTEROL 2.5MG INH SOL UD 3ML (DUONEB)(J7620) NEB SCH ×5 (04:00→20:18)
[2016-11-03 05:28] LABS: BASO % 0.5 % (0.0-1.0); EOS # 0.2 K/mm3 (0.0-0.50); EOS % 3.4 % (0.0-3.0); LARGE UNSTAINED CELL # 0.1 K/mm3 (0.0-0.4); LARGE UNSTAINED CELL % 1.5 % (0.0-4.0); LYMPH % 16.8 % (24.0-44.0); MEAN CORPUSCULAR HEMOGLOBIN 27.9 pg (27.0-33.0); MEAN CORPUSCULAR HGB CONC 31.9 g/dl (32.0-36.5); MEAN CORPUSCULAR VOLUME 87.7 fl (80.0-96.0); MONO # 0.4 K/mm3 (0.0-0.8); MONO % 7.7 % (0.0-5.0); NEUTROPHILS # 3.7 K/mm3 (1.8-7.7); NEUTROPHILS % 70.2 % (36.0-66.0); PLATELET COUNT, AUTOMATED 195 k/mm3 (150-450); RED CELL DISTRIBUTION WIDTH 14.9 % (11.5-14.5); WHITE BLOOD COUNT 5.3 K/mm3 (4.0-10.0)
[2016-11-03 05:47] LABS: ALBUMIN 3.1 GM/DL (3.2-5.2); ALBUMIN/GLOBULIN RATIO 0.89 (1.00-1.93); BILIRUBIN,TOTAL 0.8 MG/DL (0.2-1.0); CALCIUM LEVEL 8.3 MG/DL (8.8-10.2); CREATININE FOR GFR 1.27 MG/DL (0.70-1.30); GLOMERULAR FILTRATION RATE 57.1 (>35); POTASSIUM SERUM 4.4 MEQ/L (3.5-5.1); TOTAL PROTEIN 6.6 GM/DL (6.4-8.2)
[2016-11-03] MEDS: FUROSEMIDE 40 MG/4 ML VIAL (J1940) IV SCH ×3 (05:50→18:00)
[2016-11-03] MEDS: SLF 3 ML SYR IV SCH ×3 (05:50→21:43)
[2016-11-03] MEDS: METOPROLOL TART 25 MG TABLET PO SCH ×3 (05:55→21:44)
[2016-11-03] MEDS: HumaLOG INSULIN (NovoLOG) PER UNIT SC SCH ×4 (08:30→21:00)
[2016-11-03] MEDS: ATORVASTATIN 20 MG TAB PO SCH (08:31)
[2016-11-03] MEDS: TAMSULOSIN 0.4 MG CAP PO SCH (08:31)
[2016-11-03] MEDS: DIGOXIN 0.125 MG TAB PO SCH (08:32)
[2016-11-03] MEDS: ULTRACET TAB PO SCH (08:33)
[2016-11-03] MEDS: MAGNESIUM OXIDE 400 MG TAB (MAG-OX) PO SCH ×2 (08:33→21:44)
[2016-11-03] MEDS: SODIUM CHLORIDE NASAL 0.65% SPRAY BTL (OCEAN) SCH ×2 (08:33→21:43)
[2016-11-03] MEDS: NYSTATIN CREAM 15 GM TOP SCH ×2 (08:34→21:43)
[2016-11-03 13:36] LABS: LDH, BODY FLUID 46 U/L (NOT ESTABLISHED); TOTAL PROTEIN, BODY FLUID 2.7 G/DL (NOT ESTABLISHED)
--- NOTE | 2016-11-03 13:41 | IPNPDOC ---
Text Note Date of Service The patient was seen on 11/03/16. NOTE Subjective: Pt c/o mild dyspnea. No CP/Palpitations. Objective: Vitals: (see below) General: No acute distress, laying comfortably in bed. HEENT: Moist mucous membranes. Neck: No JVD or lymphadenopathy Cardiac: RRR, No murmurs Pulm: Non labored. Coarse crackles and diminished breath sounds R>L. No wheezing , rhonchi. Abd: NT/ND + BS Ext: trace to 1+ pitting edema BLE, improved from yesterday. No cyanosis Labs (see below) Images: CT of the chest without IV contrast: Comparison is the portable plain film study dated 10/28/2016. There is a large right pleural effusion. There is a small left pleural effusion. There is an infiltrate versus mass posteriorly in the right middle lobe. There is no mediastinal or axillary adenopathy. The study is insensitive for hilar adenopathy. The thoracic aorta is unremarkable. Cardiac size is normal. The visualized upper abdominal contents are unremarkable. CT Chest with contrast 10/30/16 There is a large right pleural effusion status quo. There is a small left pleural effusion status quo. There is no pericardial effusion. Patchy and asymmetric opacities again seen in the right lower lobe status quo. There is fluid in the right minor fissure, status quo. The imaged upper abdomen and imaged osseous structures are unchanged. Evaluation of the lung moyer show them to be stable. The right lower lobe opacity is likely secondary to compressive atelectatic changes due to the effusion. No new masses are present. IMPRESSION: Essentially unchanged CT examination of the chest with findings as described above. Echocardiogram 10/30/16 CONCLUSIONS: 1. Multiple regional wall motion abnormalities of the left ventricle. Akinesis of the left ventricle apex. Akinesis of the anterior, anteroseptal and inferoseptal segments at the mid left ventricle level. Hypokinesis of the mid inferior wall segment. Hypokinesis of the basal, anteroseptal and basal inferoseptal LV segments. Normal wall motion and wall thickening involving the basal anterior, basal inferior, and the basilar mid inferolateral and anterolateral LV segments. Akinesis of the apical cap segment. No LV thrombus. Severe reduction overall LV systolic function. LVEF 20% by visual estimate. Unable to assess LV diastolic function in the setting of atrial fibrillation and severe mitral regurgitation. 2. Severe mitral annular calcification. Severe mitral regurgitation. No mitral stenosis. 3. Degenerative, mild calcific aortic valve disease with severe focal thickening and focal cuspid deposits of a three-cuspid aortic valve. Moderate reduction in mobility of the aortic cusps. Moderate aortic stenosis as judged by the dimensions index. Mild aortic regurgitation. 4. Moderate left atrial dilatation by visual assessment. 5. Suggestive of moderate elevation of pulmonary artery systolic pressure. Normal right ventricle size and systolic function. Moderate right atrial dilatation by visual assessment. 6. Inferior vena cava plethora. Suggestive of elevated central venous pressure of at least 20 mmHg. 7. The appearance of bilateral pleural effusion. Assessment/Plan 1.Acute Decompensated systolic heart failure- last EF 40% in August 2015--> now 20%. Severe MR noted. Dr. Lincoln consulted. On IV Lasix, increased by cardio to obtain net negative. Continued on LARISA inhibitor and beta ran. Repeat echocardiogram (see above). EKG with no acute ST changes. Cardiac enzymes negative. Will need life vest on d/c. 2. Large right pleural effusion- we'll continue with diuresis, New since 2015. Repeat CT chest with contrast. Plan for thoracentesis today by IR. History of tobacco abuse. Consolidation noted, likely due to compressive atelectasis - remained afebrile/ no leukocytosis - Levaquin d/c. 3. Atrial fibrillation with RVR on Xarelto. Continue metoprolol, digoxin. 4. History of CAD on Plavix, statin, and beta ran 5. YOEL on CPAP 6. BPH on Flomax 7. Chronic recurrent UTI- on nitrofurantoin DVT prophy: On Xarelto, which has been on hold for thoracentesis today. Will need to be restarted tomorrow if no bleeding notable. Prognosis is guarded. I have had an extensive conversation with the patient today about his poor prognosis given his depressed EF in setting of severe MR. Full Code for now. VS,Mirta, I+O VS, Mirta, I+O Laboratory Tests 11/03/16 04:51 Red Blood Count 3.84 L, Mean Corpuscular Volume 87.7, Mean Corpuscular Hemoglobin 27.9, Mean Corpuscular Hemoglobin Concent 31.9 L, Red Cell Distribution Width 14.9 H, Neutrophils (%) (Auto) 70.2 H, Lymphocytes (%) (Auto ) 16.8 L, Monocytes (%) (Auto) 7.7 H, Eosinophils (%) (Auto) 3.4 H, Basophils (% ) (Auto) 0.5, Neutrophils # (Auto) 3.7, Lymphocytes # (Auto) 1.0 L, Monocytes # (Auto) 0.4, Eosinophils # (Auto) 0.2, Basophils # (Auto) 0.0, Calcium Level 8.3 L, Aspartate Amino Transf (AST/SGOT) 13 L, Alanine Aminotransferase (ALT/SGPT) 27, Lactate Dehydrogenase 112, Alkaline Phosphatase 82, Total Bilirubin 0.8, Total Protein 6.6, Albumin 3.1 L Vital Signs Date Time Temp Pulse Resp B/P (MAP) Pulse Ox O2 Delivery O2 Flow Rate FiO2 11/03/16 13:20 97.0 73 18 108/63 (78) 94 Nasal Cannula 2.0 I&O- Last 24 Hours up to 6 AM 11/03/16 05:59 Intake Total 1440 ml Output Total 2800 ml Balance -1360 ml STEPHAN STAPLES MD Nov 03, 2016 13:41
--- NOTE | 2016-11-03 14:00 | REP ---
Chest x-ray: Two views. History: Post thoracentesis. Comparison study November 02, 2016. Findings: The right pleural effusion is much improved post right thoracentesis. There is no evidence of pneumothorax. There is slight blunting of the pleural angles bilaterally on today's radiograph. Heart is mildly enlarged. Oxygen tubing and EKG monitoring electrodes are seen. There are degenerative changes in the thoracic spine and in the shoulders. Impression: Small residual pleural effusions, much improved on the right status post right thoracentesis. Mild cardiomegaly. Signed by Jurgen Ramirez MD 11/03/2016 04:42 P
[2016-11-03 14:20] LABS: BF DIFF IF INDICATED? YES (NO); RBC PLEURAL FLUID < 10 (<10mm3 cells/uL); TNC PLEURAL FLUID 187 cells/uL (0-20)
[2016-11-03 15:21] LABS: CC BF DIFF EXAM CYTOCENTRIFUGE
--- NOTE | 2016-11-03 16:05 | REP ---
ULTRASOUND GUIDED RIGHT THORACENTESIS: The procedure was performed under the direct supervision of Dr. Ramirez. The risks and benefits of the procedure were explained to the patient and informed consent was obtained. The right pleural effusion was localized using ultrasound guidance. The skin was prepped and draped in a sterile fashion. 1% Lidocaine was used as a local anesthetic. An 8-[place] multi side hole catheter was inserted using trocar technique. 2965 mL of yellow fluid was withdrawn with a sample sent to the lab for analysis. The patient tolerated the procedure well and there were no immediate complications. Reviewed by DAMIAN Bernabe 11/03/2016 04:25 PEdited and Signed by Jurgen Ramirez MD 11/03/2016 04:44 P
--- NOTE | 2016-11-03 20:20 | IPN ---
DATE: 11/03/2016 Mr. Rodriguez continues to be short of breath. He feels that the situation is not dramatically different from yesterday. This morning, his blood pressure was 108/63, heart rate remains in 80s. He is afebrile. Saturation is 95% on 2 liters of oxygen. Yesterday, in spite of increasing the dose of diuretics, his fluid balance was approximately equal, but this morning he already was about 1400 negative. Documented weight is 84.6 kg, which represents decreased from day before. Jugular venous pulse is still elevated. Lungs are clear on the left. On the right, there are diminished sounds at least one-half of the lung field. Heart examination reveals irregularly irregular rhythm. There is a systolic murmur at the apex. I do not appreciate gallop. Abdomen is soft, nontender. There is still about 1+ edema. LABORATORY: Hemoglobin 10.7, hematocrit 33, platelet count 195,000. Basic metabolic panel: Potassium 4.4, BUN 31, creatinine 1.3, GFR 57. The digoxin level upon admission was within normal range. ASSESSMENT/PLAN: Mr. Rodriguez is an 86-year-old man who has history of coronary artery disease with chronic atrial fibrillation and recently diagnosed severe mitral insufficiency. He has left ventricular (LV) systolic dysfunction in severe range. He presented with full-blown congestive heart failure and so far has been responding to IV diuretics, but not overwhelmingly well. I will continue current dose of diuretics. There is a plan to perform ultrasound-guided thoracentesis later today by interventional radiology. We are hopeful that it will bring significant relief of his symptoms and speed up his recovery. Nevertheless, in the long run, his condition remains guarded and long-term prognosis is extremely poor. Unfortunately, due to advance LV systolic dysfunction and concomitant mitral valve disease, I do not believe that he can be considered a candidate for any invasive intervention. OPAL
[2016-11-03] MEDS: NITROFURANTOIN (MACROBID) 100 MG CAP PO SCH (21:44)
[2016-11-03] MEDS: DUTASTERIDE 0.5 MG CAP (AVODART) PO SCH (21:44)
[2016-11-03] MEDS: CLOPIDOGREL 75 MG TAB PO SCH (21:44)
[2016-11-03] MEDS ORDERED: zolPIDEM TARTRATE 5 MG TAB PO ONE (23:30)
[2016-11-04] MEDS: FUROSEMIDE 40 MG/4 ML VIAL (J1940) IV SCH ×4 (00:06→18:06)
[2016-11-04] MEDS: IPRATROPIUM 0.5MG/ALBUTEROL 2.5MG INH SOL UD 3ML (DUONEB)(J7620) NEB SCH ×7 (04:00→23:08)
[2016-11-04 04:21] VITALS: BP 130/66
[2016-11-04 06:08] LABS: BASO % 0.4 % (0.0-1.0); EOS # 0.2 K/mm3 (0.0-0.50); EOS % 3.2 % (0.0-3.0); LARGE UNSTAINED CELL # 0.1 K/mm3 (0.0-0.4); LARGE UNSTAINED CELL % 1.5 % (0.0-4.0); LYMPH # 0.9 K/mm3 (1.5-4.5); LYMPH % 13.3 % (24.0-44.0); MEAN CORPUSCULAR HEMOGLOBIN 28.2 pg (27.0-33.0); MEAN CORPUSCULAR HGB CONC 32.1 g/dl (32.0-36.5); MONO # 0.4 K/mm3 (0.0-0.8); MONO % 6.2 % (0.0-5.0); NEUTROPHILS # 4.8 K/mm3 (1.8-7.7); NEUTROPHILS % 75.3 % (36.0-66.0); PLATELET COUNT, AUTOMATED 200 k/mm3 (150-450); RED CELL DISTRIBUTION WIDTH 14.8 % (11.5-14.5); WHITE BLOOD COUNT 6.3 K/mm3 (4.0-10.0)
[2016-11-04] MEDS: METOPROLOL TART 25 MG TABLET PO SCH ×3 (06:09→21:33)
[2016-11-04] MEDS: SLF 3 ML SYR IV SCH ×3 (06:09→21:34)
[2016-11-04 06:33] LABS: ANION GAP 5 MEQ/L (8-16); BLOOD UREA NITROGEN 32 MG/DL (7-18); CALCIUM LEVEL 8.4 MG/DL (8.8-10.2); CARBON DIOXIDE LEVEL 35 MEQ/L (21-32); CHLORIDE LEVEL 95 MEQ/L (98-107); CREATININE FOR GFR 1.15 MG/DL (0.70-1.30); GLOMERULAR FILTRATION RATE > 60.0 (>35); GLUCOSE, FASTING 233 MG/DL (83-110); POTASSIUM SERUM 4.6 MEQ/L (3.5-5.1); SODIUM LEVEL 135 MEQ/L (136-145)
[2016-11-04] MEDS: HumaLOG INSULIN (NovoLOG) PER UNIT SC SCH ×4 (07:41→21:00)
[2016-11-04 08:00] VITALS: BP 99/63
[2016-11-04] MEDS: SODIUM CHLORIDE NASAL 0.65% SPRAY BTL (OCEAN) SCH ×2 (08:21→21:31)
[2016-11-04] MEDS: NYSTATIN CREAM 15 GM TOP SCH ×2 (08:21→21:31)
[2016-11-04] MEDS: ATORVASTATIN 20 MG TAB PO SCH (08:21)
[2016-11-04] MEDS: ULTRACET TAB PO SCH (08:22)
[2016-11-04] MEDS: MAGNESIUM OXIDE 400 MG TAB (MAG-OX) PO SCH ×2 (08:22→21:33)
[2016-11-04] MEDS: TAMSULOSIN 0.4 MG CAP PO SCH (08:22)
[2016-11-04] MEDS: DIGOXIN 0.125 MG TAB PO SCH (08:22)
[2016-11-04 11:29] VITALS: BP 97/64
[2016-11-04 15:41] VITALS: BP 99/60
--- NOTE | 2016-11-04 17:03 | IPN ---
DATE: 11/04/2016 SUBJECTIVE: The patient is seen and examined in the room today. The patient stated his breathing shows some improvement, but now he has some difficulty bringing up the sputum and he feels something stuck in his chest. He just cannot bring it up. The patient had a thoracentesis yesterday. The patient tolerated the procedure well. OBJECTIVE: VITAL SIGNS: Temperature is 97.6, pulse is 89, respiratory rate 20, blood pressure is 99.63, pulse oximetry is 100% with two liters nasal cannula. GENERAL: No sign of acute distress. The patient is alert, awake, and able to answer questions. HEENT: Normocephalic, atraumatic. Extraocular motor grossly intact. CARDIOVASCULAR: Positive S1, S2, regular rate. LUNGS: Decreased breath sounds bilaterally, positive crackles especially in the lower base. ABDOMEN: Soft, nontender, nondistended. Bowel sounds present. No rebound. No guarding. EXTREMITIES: Trace edema bilaterally. No sign of cyanosis. LABORATORY DATA: WBC 6.3, hemoglobin 10.8, hematocrit 33.8, platelet count is 200. Sodium is 135, potassium 4.6, chloride is 95, carbon dioxide 35, BUN 32, creatinine 1.15, GFR is greater than 60, fasting glucose is 233, magnesium is 2, calcium is 8.4. ASSESSMENT AND PLAN: 1. Acute decompensated systolic heart failure. Ejection fraction (EF) is approximately 20%. The patient also has severe mitral regurgitation. [employer] Supervisor has been consulted. The patient has a poor prognosis. The patient had a thoracentesis yesterday. Approximately 3 liters of pleural fluids was drained. Currently, the patient is on Lasix with holding parameters. We appreciate floorhand's recommendations. 2. History of mitral and aortic calcification with severe mitral regurgitation. 3. Large right pleural effusion secondary to decompensated congestive heart failure. 4. Atrial fibrillation with rapid ventricular response (RVR). We will restart the Xarelto today. Continue with metoprolol and digoxin. 5. History of coronary artery disease. On Plavix, statin, and beta ran. 6. Obstructive sleep apnea (YOEL). On continuous positive airway pressure (CPAP). 7. Benign prostatic hypertrophy. On Flomax. 8. Chronic recurrent urinary tract infection (UTI). The patient is on nitrofurantoin. The patient's urine cultures from previous years are reviewed. Usually, the patient will grow Enterococcus faecalis. 9. Deep vein thrombosis (DVT) prophylaxis. The patient is on Xarelto. DISPOSITION: The patient has a poor prognosis due to severe heart disease. I had a chance to talk to the proxy, Mrs. Marion Aviles, phone number [phone]. The daughter who is the healthcare proxy is considering COMFORT MEASURES ONLY (DEVELOPMENT PROFESSIONAL) but she requires some time to discuss with the patient and the brother. We will continue to followup.
[2016-11-04] MEDS: RIVAROXABAN 20 MG TAB (XARELTO) PO SCH (17:05)
--- NOTE | 2016-11-04 20:05 | IPN ---
DATE: 11/04/2016 Mr. Rodriguez underwent thoracocentesis yesterday afternoon. He tolerated the procedure well and he tells me that he is feeling much better. He has no complaints as we speak, but wants to go home and he even uses statements like "I do not want to in the hospital". Simultaneously, he does not admit any chest pain or anxiety. VITAL SIGNS: Blood pressure 99/60, heart rate has been in 60s to 80s. He is afebrile. Saturation is 100% on 2 liters of oxygen by nasal cannula. Fluid balance yesterday was about 5 liters negative to some degree because of the volume removed during the thoracocentesis, it was almost 3 liters. He is already about 1500 mL negative today. Documented weighs 84.6 kg. Jugular venous pulse (JVP) looks only minimally elevated if so. Lungs are clear on the left, but he still has diminished breath sounds on the right base, but much better than yesterday. Heart Exam: Irregularly irregular rhythm. There is blowing holosystolic murmur best heard at the apex. Abdomen is soft, nontender. There is still about 1+ peripheral edema. LABORATORY: Complete blood count (CBC): White blood count (WBC) 6.3, hemoglobin 10.8 hematocrit 33 and platelet count 200. Basic metabolic panel: Potassium 4.6, BUN 32, creatinine 1.1 and glucose 233. The chest x-ray after the thoracentesis reveals no evidence for pneumothorax. There is substantial improvement of aeration of the right lung with almost near complete resolution of the effusion. ASSESSMENT/PLAN: Mr. Rodriguez is an 86-year-old man who has chronic atrial fibrillation, severe left ventricular (LV) dysfunction and severe mitral insufficiency. He presented with exacerbated congestive heart failure. With fairly vigorous diuresis plus thoracentesis; he now feels much better. I think at this point we should start working on getting him home. I would advocate that the ambulation is increased as tolerated. He will need some physical therapy (PT), but hopefully he will be able to go home by the end of this weekend. From medication perspective, I did not make any changes today. As far as the atrial fibrillation is concerned, he is reasonably rate-controlled on combination of small dose of digoxin and metoprolol; and as far as the coronary artery disease (CAD) is concerned, he has had no anginal symptoms. MTDD
[2016-11-04 20:10] VITALS: BP 93/63
[2016-11-04] MEDS ORDERED: zolPIDEM TARTRATE 5 MG TAB PO ONE (21:15)
[2016-11-04] MEDS: DUTASTERIDE 0.5 MG CAP (AVODART) PO SCH (21:32)
[2016-11-04] MEDS: CLOPIDOGREL 75 MG TAB PO SCH (21:32)
[2016-11-04] MEDS: NITROFURANTOIN (MACROBID) 100 MG CAP PO SCH (21:33)
[2016-11-04 23:53] VITALS: BP 103/67
[2016-11-05] VITALS (7 sets, daily range): BP systolic 83–117; BP diastolic 51–65
[2016-11-05] MEDS: FUROSEMIDE 40 MG/4 ML VIAL (J1940) IV SCH ×2 (00:12→06:04)
[2016-11-05] MEDS: IPRATROPIUM 0.5MG/ALBUTEROL 2.5MG INH SOL UD 3ML (DUONEB)(J7620) NEB SCH ×5 (03:20→20:00)
[2016-11-05] MEDS: METOPROLOL TART 25 MG TABLET PO SCH ×3 (06:00→21:41)
[2016-11-05] MEDS: SLF 3 ML SYR IV SCH ×3 (06:04→21:48)
[2016-11-05 06:54] LABS: MEAN CORPUSCULAR HEMOGLOBIN 27.8 pg (27.0-33.0); MEAN CORPUSCULAR HGB CONC 31.9 g/dl (32.0-36.5); MEAN CORPUSCULAR VOLUME 87.1 fl (80.0-96.0); RED CELL DISTRIBUTION WIDTH 14.9 % (11.5-14.5); WHITE BLOOD COUNT 8.4 K/mm3 (4.0-10.0)
[2016-11-05 06:56] LABS: CALCIUM LEVEL 8.6 MG/DL (8.8-10.2); CREATININE FOR GFR 1.22 MG/DL (0.70-1.30); GLOMERULAR FILTRATION RATE 59.8 (>35); POTASSIUM SERUM 4.7 MEQ/L (3.5-5.1)
[2016-11-05] MEDS: NYSTATIN CREAM 15 GM TOP SCH ×2 (08:06→21:42)
[2016-11-05] MEDS: TAMSULOSIN 0.4 MG CAP PO SCH (08:07)
[2016-11-05] MEDS: ATORVASTATIN 20 MG TAB PO SCH (08:07)
[2016-11-05] MEDS: MAGNESIUM OXIDE 400 MG TAB (MAG-OX) PO SCH ×2 (08:07→21:41)
[2016-11-05] MEDS: SODIUM CHLORIDE NASAL 0.65% SPRAY BTL (OCEAN) SCH ×2 (08:08→21:42)
[2016-11-05] MEDS: ULTRACET TAB PO SCH (08:08)
[2016-11-05] MEDS: DIGOXIN 0.125 MG TAB PO SCH (08:08)
[2016-11-05] MEDS: HumaLOG INSULIN (NovoLOG) PER UNIT SC SCH ×4 (08:11→21:41)
--- NOTE | 2016-11-05 09:02 | IPN ---
DATE: 11/05/2016 Mr. Rodriguez seems to be a little more optimistic today. He tells me again that he would like to go home. Simultaneously though he complains about pain in his left ankle and he is not sure that he will be able to walk. Dyspnea is much better. Denies any chest pain. Denies palpitations. Vital Signs: Blood pressure 94/60. Heart rate has been from 70s up to 110s. He is afebrile. Saturation is 98% on 2 liters of oxygen by nasal cannula. Fluid balance yesterday was 1-1/2 liter negative. Weight is 81.2 kg, which is about 4 kg decreased since admission. He is alert and oriented and appropriate. His jugular venous pulse (JVP) is not elevated. Lungs are essentially clear to auscultation. I hear only minimal crackle. There are somewhat diminished breath sounds over the right base still. Heart Exam: Irregular rhythm without gallop. There is a 3/6 holosystolic murmur best heard at the apex. I do not appreciate any diastolic murmur. Abdomen: Soft, nontender. There is still some minimal residual edema. I do not appreciate any abnormality of the left ankle. There is no redness or obvious swelling Laboratory-trevino, CBC: Hemoglobin 11.2, hematocrit 35.2, platelet count 201. Basic metabolic panel: Sodium 133, creatinine 1.2, BUN 28 and glucose 220. His BNP was 869, which unfortunately is not appreciably changed since admission. ASSESSMENT/PLAN: Mr. Rodriguez is an 86-year-old man who has ischemic cardiomyopathy and severe left ventricular systolic dysfunction. There is concomitant severe mitral insufficiency. He presented with congestive heart failure in a very volume overloaded state. We did accomplish improvement in his volume and will continue diuresing him. He has been anticoagulated with Xarelto and rate is reasonably well-controlled. Tentatively, he will be discharged home. I am afraid that his long-term prognosis remains very poor though as the underlying problems are inherently unfixable.
[2016-11-05 09:40] LABS: URIC ACID 5.4 MG/DL (3.5-7.2)
--- NOTE | 2016-11-05 16:38 | IPN ---
DATE: 11/05/2016 SUBJECTIVE: The patient is seen and examined in the room today. The patient stated his breathing shows significant improvement and he would like to go home. He also noted to have acute left ankle pain that started this morning. He denies any trauma or fall. It never happened to him before. No overnight events reported. OBJECTIVE: VITAL SIGNS: Temperature is 99.3, pulse is 98, respiratory rate 22, blood pressure is 91/51, pulse oximetry is 100% with two liters nasal cannula. GENERAL: No sign of acute distress, alert and oriented times three. HEENT: Normocephalic, atraumatic. Extraocular motor grossly intact. CARDIOVASCULAR: Irregularly irregular, positive systolic murmur. Positive S1, S2. LUNGS: Clear to auscultation bilaterally. Some mild crackles bilaterally. ABDOMEN: Soft, nontender, nondistended. Bowel sounds present. No rebound. No guarding. EXTREMITIES: Extremely tender to palpation of the left ankle even with mild pressure. No significant swelling or erythema is appreciated. No sign of cyanosis. LABORATORY DATA: WBC is 8.4, hemoglobin 11.3, hematocrit 35.2, platelet count is 201. Sodium is 133, potassium 4.7, chloride is 93, carbon dioxide 37, BUN 29, creatinine 1.22, GFR is 59.8, fasting glucose is 220, uric acid is 5.4, calcium is 8.6. Pleural fluid pathology shows degenerated mesothelial cells in the background of small lymphocytes. Pleural fluid cytology showed negative for malignancy. ASSESSMENT AND PLAN: 1. Acute decompensated systolic heart failure. Ejection fraction (EF) is approximately 20%. The patient also has severe mitral valve insufficiency. Rn Eligibility is consulted. The patient has been on aggressive IV diuresis. The patient has continued to have a significant net negative for the past few days. The patient started having soft blood pressures and the patient's kidney injury started to show some minor changes. We will slow down the diuretic at this moment. We will still try to maintain a net negative balance. 2. History of mitral and aortic calcification with severe mitral regurgitation. Combined with the patient's EF of 20%, the patient has a very poor prognosis. I have discussed with the patient's proxy, his daughter Mrs. Schultz, and all of the questions are answered. 3. Large right pleural effusion secondary to decompensated heart failure, status post thoracentesis, approximately 3 liters of pleural fluid was removed. Pathology and cytology does not show anything significant. We will follow with a gram stain. The patient currently has a very soft blood pressure. We will continue to monitor. 4. Atrial fibrillation with rapid ventricular response (RVR). Xarelto is restarted. The patient is rate controlled with metoprolol and digoxin. 5. Coronary artery disease, on Plavix, statin and beta ran. 6. Obstructive sleep apnea (YOEL), on continuous positive airway pressure (CPAP). 7. Benign prostatic hypertrophy (BPH), on Flomax. 8. Chronic recurrent urinary tract infection. The patient is on nitrofurantoin. 9. Deep vein thrombosis (DVT) prophylaxis. The patient is on Xarelto.
[2016-11-05] MEDS ORDERED: FUROSEMIDE 40 MG/4 ML VIAL (J1940) IV SCH (17:00)
[2016-11-05] MEDS: RIVAROXABAN 20 MG TAB (XARELTO) PO SCH (17:44)
[2016-11-05] MEDS: NITROFURANTOIN (MACROBID) 100 MG CAP PO SCH (21:40)
[2016-11-05] MEDS: DUTASTERIDE 0.5 MG CAP (AVODART) PO SCH (21:40)
[2016-11-05] MEDS: CLOPIDOGREL 75 MG TAB PO SCH (21:40)
[2016-11-06] MEDS: IPRATROPIUM 0.5MG/ALBUTEROL 2.5MG INH SOL UD 3ML (DUONEB)(J7620) NEB SCH ×7 (00:03→23:10)
[2016-11-06 04:00] VITALS: BP 94/70
[2016-11-06 05:19] LABS: MEAN CORPUSCULAR HEMOGLOBIN 28.6 pg (27.0-33.0); MEAN CORPUSCULAR HGB CONC 33.1 g/dl (32.0-36.5); MEAN CORPUSCULAR VOLUME 86.3 fl (80.0-96.0); RED CELL DISTRIBUTION WIDTH 14.8 % (11.5-14.5); WHITE BLOOD COUNT 6.8 K/mm3 (4.0-10.0)
[2016-11-06 05:34] LABS: ANION GAP 5 MEQ/L (8-16); BLOOD UREA NITROGEN 26 MG/DL (7-18); CARBON DIOXIDE LEVEL 34 MEQ/L (21-32); CHLORIDE LEVEL 94 MEQ/L (98-107); CREATININE FOR GFR 1.04 MG/DL (0.70-1.30); GLOMERULAR FILTRATION RATE > 60.0 (>35); GLUCOSE, FASTING 189 MG/DL (83-110); POTASSIUM SERUM 4.7 MEQ/L (3.5-5.1); SODIUM LEVEL 133 MEQ/L (136-145)
[2016-11-06] MEDS: SLF 3 ML SYR IV SCH ×3 (06:00→23:31)
[2016-11-06] MEDS: METOPROLOL TART 25 MG TABLET PO SCH (06:20)
[2016-11-06 08:00] VITALS: BP 95/59
[2016-11-06] MEDS: HumaLOG INSULIN (NovoLOG) PER UNIT SC SCH ×4 (08:18→21:16)
[2016-11-06] MEDS: ATORVASTATIN 20 MG TAB PO SCH (08:18)
[2016-11-06] MEDS: NYSTATIN CREAM 15 GM TOP SCH ×2 (08:19→21:16)
[2016-11-06] MEDS: SODIUM CHLORIDE NASAL 0.65% SPRAY BTL (OCEAN) SCH ×2 (08:19→21:16)
[2016-11-06] MEDS: TAMSULOSIN 0.4 MG CAP PO SCH (08:19)
[2016-11-06] MEDS: MAGNESIUM OXIDE 400 MG TAB (MAG-OX) PO SCH ×2 (08:19→21:14)
[2016-11-06] MEDS: DIGOXIN 0.125 MG TAB PO SCH (08:19)
--- NOTE | 2016-11-06 08:28 | IPN ---
DATE: 11/06/2016 Mr. Rodriguez tells me he feels much better. He is much less short of breath and was able to ambulate some yesterday without major difficulty. He denies any chest pain. He did not have any paroxysmal nocturnal dyspnea (PND) when he slept with his BiPAP. Blood pressure 110/60. Heart rate has been on the fast side and mostly high 80s, 90s and low 100s. Saturation is 99% on 2 liters of oxygen by nasal cannula. Fluid balance yesterday was documented as negative almost 2 liters, but weight is unchanged at 81.4 kg. He is alert and oriented. He seems much more vigorous than previous days. His jugular venous pulse (JVP) is only minimally above the clavicle, maybe 1 or 2 cm. Lungs though are surprisingly clear to auscultation. Heart exam is unchanged. He has irregular rhythm with heart rate around 100. There is a systolic murmur best heard at the apex about 3/6 intensity and consistent with his known severe mitral insufficiency. Abdomen is soft and nontender. There is only mild peripheral edema. Neurologically, he is intact other than generalized weakness. LABORATORY DATA: CBC reveals anemia with hemoglobin 10.5, hematocrit 31.7, both are stable. Basic metabolic panel: potassium 4.7, BUN 26, creatinine1, for GFR over 60, and glucose is 190. ASSESSMENT/PLAN: Mr. Rodriguez is an 86-year-old man who has chronic ischemic heart disease with remote history of stenting. He also has chronic atrial fibrillation. He presented with acutely exacerbated systolic congestive heart failure. Echocardiogram revealed severe LV systolic dysfunction and severe mitral insufficiency. After fairly vigorous diuresis and right-sided thoracentesis, he feels much better. I think that he is probably close to euvolemic state as we can get him. His heart rate is still not perfectly well controlled. I am going to increase the metoprolol to 50 mg twice a day and he is also chronically on low-dose digoxin. I believe that once he can ambulate satisfactorily now he can be discharged home. His long-term prognosis unfortunately is poor, not only on account of his advanced age but also severe LV dysfunction and severe mitral insufficiency. His long-term cardiac care will remain with his regular supervisor audit clerks, Dr. Lou in [place].
[2016-11-06] MEDS: ULTRACET TAB PO SCH (08:32)
[2016-11-06] MEDS: FUROSEMIDE 40 MG TAB PO SCH ×2 (08:32→16:57)
[2016-11-06 12:15] VITALS: BP 98/62
[2016-11-06 15:30] VITALS: BP 113/64
[2016-11-06] MEDS: RIVAROXABAN 20 MG TAB (XARELTO) PO SCH (17:12)
[2016-11-06 20:00] VITALS: BP 100/59
[2016-11-06] MEDS: DUTASTERIDE 0.5 MG CAP (AVODART) PO SCH (21:13)
[2016-11-06] MEDS: METOPROLOL TART 50 MG TAB PO SCH (21:14)
[2016-11-06] MEDS: CLOPIDOGREL 75 MG TAB PO SCH (21:14)
[2016-11-06] MEDS: NITROFURANTOIN (MACROBID) 100 MG CAP PO SCH (21:14)
--- NOTE | 2016-11-06 22:45 | IPN ---
DATE: 11/06/2016 SUBJECTIVE: The patient was seen and examined in the room today. The patient stated that he is feeling fine. No issue with breathing. His oxygen requirement is almost at his baseline. No overnight events reported. OBJECTIVE: VITAL SIGNS: Temperature is 97.8, pulse is 88, respirations 22, blood pressure is 95/59, pulse oximetry is 94% on room air. GENERAL: No sign of acute distress. Alert and oriented times three. HEENT: Normocephalic, atraumatic. Extraocular motor grossly intact. CARDIOVASCULAR: Irregularly irregular. Positive systolic murmur. Positive S1, S2. LUNGS: Clear to auscultation bilaterally. Still some mild crackle bilaterally. ABDOMEN: Soft, nontender, nondistended. Bowel sounds are present. No rebound, no guarding. EXTREMITIES: There is some tenderness to palpation at the left ankle. No significant swelling or erythema appreciated. No sign of cyanosis. LABORATORY DATA: White blood count (WBC) 6.8, hemoglobin 10.5, hematocrit 31.7, platelet count is 198. Sodium is 133, potassium 4.7, chloride is 94, CO2 34, BUN 26, creatine 1.04, glomerular filtration rate (GFR) is greater than 60, fasting glucose is 189, calcium is 8. ASSESSMENT AND PLAN: 1. Acute decompensated systolic heart failure. Ejection fraction is approximately 20%. The patient also has severe mitral valve insufficiency, would appreciate cardiology assistance. The patient has been on aggressive IV diuresis, currently on Lasix. Diuresis regimen has been adjusted accordingly. A Elkins catheter will be removed today. Will see if the patient continues to maintain balance input and output. 2. History of mitral aortic calcification with severe mitral regurgitation combining with ejection fraction of 20%. The patient has poor prognosis. I have being discussed the patient's prognosis, treatment and plan with the patient's proxy, Ms. Schultz. All questions were answered. 3. Right pleural effusion secondary to decompensated heart failure, status post thoracentesis, approximately 3 liters of pleural fluid was removed. Pathology and psychology did not show anything significant. Pleural fluid Gram stain showed no organisms seen. Fungal smear for the pleural fluid is also negative. The patient currently has very stable blood pressure, continue to monitor. 4. Atrial fibrillation with rapid ventricular response. The patient is on Xarelto. The patient's rate control with metoprolol and digoxin. 5. Coronary artery disease on Plavix, statin and beta blockers. 6. Obstructive sleep apnea on CPAP. 7. Benign prostatic hypertrophy. The patient is on Flomax, Elkins catheter will be removed and check if the patient will have urinary retention. 8. Chronic current urinary infection. The patient is on nitrofurantoin. 9. Deep vein thrombosis (DVT) prophylaxis. The patient is on Xarelto.
[2016-11-06] MEDS ORDERED: zolPIDEM TARTRATE 5 MG TAB PO PRN (23:15)
[2016-11-07] VITALS: BP 100/58
[2016-11-07] MEDS: IPRATROPIUM 0.5MG/ALBUTEROL 2.5MG INH SOL UD 3ML (DUONEB)(J7620) NEB SCH ×3 (03:26→11:30)
[2016-11-07 04:00] VITALS: BP 98/69
[2016-11-07 05:41] LABS: MEAN CORPUSCULAR HEMOGLOBIN 28.2 pg (27.0-33.0); MEAN CORPUSCULAR HGB CONC 32.5 g/dl (32.0-36.5); MEAN CORPUSCULAR VOLUME 86.6 fl (80.0-96.0); RED CELL DISTRIBUTION WIDTH 14.9 % (11.5-14.5); WHITE BLOOD COUNT 6.6 K/mm3 (4.0-10.0)
[2016-11-07] MEDS: SLF 3 ML SYR IV SCH ×2 (05:41→12:21)
[2016-11-07 05:52] LABS: ANION GAP 7 MEQ/L (8-16); BLOOD UREA NITROGEN 32 MG/DL (7-18); CALCIUM LEVEL 8.3 MG/DL (8.8-10.2); CARBON DIOXIDE LEVEL 31 MEQ/L (21-32); CHLORIDE LEVEL 94 MEQ/L (98-107); CREATININE FOR GFR 1.03 MG/DL (0.70-1.30); GLOMERULAR FILTRATION RATE > 60.0 (>35); GLUCOSE, FASTING 257 MG/DL (83-110); POTASSIUM SERUM 4.1 MEQ/L (3.5-5.1); SODIUM LEVEL 132 MEQ/L (136-145)
[2016-11-07 08:00] VITALS: BP 107/62
--- NOTE | 2016-11-07 08:21 | IPN ---
DATE: 11/07/2016 Mr. Rodriguez is ready to go home. He tells me that he cannot wait. Denies any dyspnea. Was able to do some ambulation yesterday and tells me that he had no difficulty. Denies any chest pain and his dyspnea is markedly improved. Blood pressure 98/69, heart rate remains in 80s, 90s and low 100s. He is afebrile and saturation is 93% on room air. Fluid balance yesterday was approximately equal even though weight is documented 78.9 which if Coreg would indicate approximately 9 kg weight loss since admission. His JVP does not appear elevated. Lungs are clear to auscultation on the left and only minimally diminished over the right base. I do not appreciate any wheezes or crackles. Heart: Exam reveals irregularly irregular rhythm, heart rate as above. He has a blowing holosystolic murmur at the apex approximately 3/6 intensity that is characteristic of mitral insufficiency. Abdomen is soft, nontender. No organomegaly. There is still about 1+ peripheral edema but markedly improved. Neurologically there is generalized weakness but otherwise no focal signs. LABORATORY: Hemoglobin 10.5, hematocrit 32, potassium 4.1, creatinine 1.0 and glucose 257. ASSESSMENT/PLAN: Mr. Rodriguez is an 86-year-old man who has severe ischemic cardiomyopathy, chronic atrial fibrillation and severe mitral insufficiency. He presented with acutely exacerbated congestive heart failure. Now he is much improved after fairly substantial diuresis. At this point, I do agree that he is ready to go home. Considering his advanced age and overall unfixable problem of concomitant severe mitral insufficiency and severe LV systolic dysfunction, I do not believe that he is a candidate for defibrillator. I believe that the combination of metoprolol 50 twice a day and digoxin seems to be appropriate for rate control. I intend to see the patient in followup at his request. He has been until now followed by Dr. Lou in [place], but with his advanced age and decreasing mobility, he would like to have a local provider.
[2016-11-07] MEDS: HumaLOG INSULIN (NovoLOG) PER UNIT SC SCH ×2 (08:52→12:20)
[2016-11-07] MEDS: MAGNESIUM OXIDE 400 MG TAB (MAG-OX) PO SCH (08:53)
[2016-11-07] MEDS: ATORVASTATIN 20 MG TAB PO SCH (08:53)
[2016-11-07] MEDS: ULTRACET TAB PO SCH (08:54)
[2016-11-07] MEDS: DIGOXIN 0.125 MG TAB PO SCH (08:54)
[2016-11-07 08:55] VITALS: BP 107/54
[2016-11-07] MEDS: TAMSULOSIN 0.4 MG CAP PO SCH (08:55)
[2016-11-07] MEDS: METOPROLOL TART 50 MG TAB PO SCH (08:55)
[2016-11-07] MEDS: FUROSEMIDE 40 MG TAB PO SCH (08:55)
[2016-11-07] MEDS: SODIUM CHLORIDE NASAL 0.65% SPRAY BTL (OCEAN) SCH (08:55)
[2016-11-07] MEDS: NYSTATIN CREAM 15 GM TOP SCH (08:55)
[2016-11-07] MEDS ORDERED: LOPR1TAB6 PO (09:38)
[2016-11-07] MEDS ORDERED: FURO40TA2 PO (09:38)
--- NOTE | 2016-11-07 15:38 | DSES ---
DATE OF ADMISSION: 10/28/2016 DATE OF DISCHARGE: 11/07/2016 PRIMARY CARE PROVIDER: Ezequiel Leo. ADMISSION/DISCHARGE DIAGNOSES: 1. Acute decompensated systolic heart failure. 2. Mitral and aortic valve calcification. 3. Severe mitral regurgitation. 4. Systolic congestive heart failure with ejection fraction (EF) of 20%. 5. Right pleural effusion secondary to decompensated heart failure. 6. Atrial fibrillation with rapid ventricular rate (RVR). 7. Coronary artery disease. 8. Obstructive sleep apnea (YOEL) on continuous positive airway pressure (CPAP). 9. Benign prostatic hypertrophy. 10. Chronic recurrent urinary infections. PROCEDURES: Thoracentesis. COMPLICATIONS: None. CONSULTANTS: Cardiologists Dr. Lincoln and Dr. Lord. HOSPITALIZATION COURSE: The patient is an 86-year-old male who presented to [facility] on 10/28/2016, with acute on chronic respiratory distress. The patient was admitted for decompensated congestive heart failure. The patient was found to have right-sided pleural effusion and the patient started on Lasix diuresis. Repeated echocardiogram was performed and the patient was found to have an EF of 20%. The patient also showed to have severe mitral regurgitation, and extension service specialist, Dr. Lincoln, was consulted. On November 03, 2016, the patient had a thoracentesis, and the patient recovered well. No complication was noted. Had approximately three liters of pleural fluid was drained. After the thoracentesis, the patient's Lasix has been actively adjusted to manage the patient's intake and output, and the patient continues to show improvement of his respiratory symptoms. On 11/07/2016, the patient passed the physical therapy treatment, and the patient was discharged from the hospital. OBJECTIVE: VITAL SIGNS: Temperature 98, pulse 96, respirations 18, blood pressure is 107/62 , pulse oximetry 97% on room air. LABORATORY DATA: WBC 6.6, hemoglobin 10.5, hematocrit 32.4, platelet count is 203. Sodium 132, potassium 4.1, chloride 94, carbon dioxide 31, BUN 32, creatinine 1.03, GFR greater than 60, fasting glucose is 257, calcium 8.3. MICROBIOLOGY: Blood cultures negative after five days times two sets. Sample collected on 10/28/2016. Pleural fluid Gram's stain on 11/03/2016, is negative. Fungal smear and culture for the pleural fluid is pending. IMAGING: CT of the chest on 10/29/2016, showed there is a large right pleural effusion, and there is a small left pleural effusion versus infiltrate versus mass posteriorly in the right middle lobe. CT of the chest with contrast on 10/30/2016, showed unchanged CT examination of the chest. DISCHARGE MEDICATIONS: - Lasix 40 mg by mouth twice a day - metoprolol tartrate 50 mg by mouth twice a day - Tylenol 500 mg by mouth at bedtime - atorvastatin 40 mg by mouth daily - Plavix 75 mg by mouth every evening - vitamin B12 5000 mcg by mouth daily - digoxin 0.125 mg by mouth daily - vitamin D 1.25 mg by mouth every two weeks - glipizide 5 mg by mouth at bedtime - magnesium oxide 250 mg by mouth daily - metformin 1000 mg by mouth twice a day - Macrobid 100 mg by mouth every evening - nitroglycerin 0.4 mg sublingual as needed for chest pain - Prilosec 20 mg by mouth every evening - Xarelto 20 mg by mouth daily - Flomax 0.4 mg daily - Ultracet one tablet by mouth daily - Ambien 12.5 mg by mouth at bedtime DISCHARGE INSTRUCTIONS: Discontinue lines. Discharge home. Activity as tolerated. Consistent carbohydrate diet as tolerated. The patient should followup with the primary care provider, Dr. Ezequiel Leo, in one week. The patient should followup with Dr. Lord in 1-2 weeks. DISCHARGE CONDITION: Guarded due to the patient's significant heart conditions. DISCHARGE TIME: Greater than 30 minutes. MTDD
== END 2016-11-07 15:13 | disposition home health service (06) | DRG 292 ==
LOC: M ED 13:35 → M ED INP 15:07 → M PCU 17:21
PROVIDERS: ADMIT Hospitalist; ATTEND Internal Medicine
PROC: 0W993ZZ Drainage of Right Pleural Cavity, Percutaneous Approach (ICD-10-PCS; principal; 2016-11-03)
DX: I50.23 Acute on chronic systolic (congestive) heart failure (principal); J90 Pleural effusion, not elsewhere classified; J98.11 Atelectasis; N39.0 Urinary tract infection, site not specified; I48.2 Chronic atrial fibrillation; B35.6 Tinea cruris; N30.20 Other chronic cystitis without hematuria; I25.2 Old myocardial infarction; E11.9 Type 2 diabetes mellitus without complications; Z79.899 Other long term (current) drug therapy; Z88.2 Allergy status to sulfonamides; N40.0 Benign prostatic hyperplasia without lower urinary tract symptoms; Z96.651 Presence of right artificial knee joint; Z96.652 Presence of left artificial knee joint; G47.33 Obstructive sleep apnea (adult) (pediatric); M54.5 Low back pain; I34.0 Nonrheumatic mitral (valve) insufficiency; Z79.4 Long term (current) use of insulin; I25.10 Atherosclerotic heart disease of native coronary artery without angina pectoris; K21.9 Gastro-esophageal reflux disease without esophagitis; Z87.891 Personal history of nicotine dependence

== ENCOUNTER → 2016-11-18 | Outpatient (REF) | payer MEDICARE, BC ==
[~2016-11-18] MED LIST changes: -ATOR40TA PO; +ATOR40TA75 PO; +CIPR-249 PO; -CIPR500T89 PO; +FURO40TA2 PO; +LOPR1TAB6 PO; +MACR100C43 PO; -MAGN250T5 PO; +MAGN250T6 PO; -METF1000 PO; +METF10004 PO; -NITR100C37 PO; +NITR100C39 PO; +OMEP10CASR PO; +OYST1TAB5 PO; +PLAV1TAB2 PO; -PLAV75TA38 PO; -SKEL-29 PO; +SKEL800T97 PO; +TOPR25TA PO; +TRAZ50TA11 OR; -TRAZ50TA4 OR; -ULTR37.52 PO; +ULTR37.54 PO; +VITA1CAP40 PO; -VITA50003 PO
[2016-11-18 16:01] LABS: ANION GAP 4 MEQ/L (8-16); BLOOD UREA NITROGEN 34 MG/DL (7-18); CALCIUM LEVEL 9.3 MG/DL (8.8-10.2); CARBON DIOXIDE LEVEL 35 MEQ/L (21-32); CHLORIDE LEVEL 98 MEQ/L (98-107); CREATININE FOR GFR 1.06 MG/DL (0.70-1.30); GLOMERULAR FILTRATION RATE > 60.0 (>35); GLUCOSE, FASTING 169 MG/DL (83-110); POTASSIUM SERUM 5.1 MEQ/L (3.5-5.1); SODIUM LEVEL 137 MEQ/L (136-145)
== END ==
LOC: M SFHCPLAZ 14:14
PROVIDERS: ATTEND Internal Medicine
DX: I10 Essential (primary) hypertension (principal)
CPT/HCPCS: 36415; 80048; 83735; G0463